=== PATIENT | male | born 1975 | race Hispanic/Latino ===

== ENCOUNTER 2017-08-22 00:56 | Emergency (ER) | payer OTHER ==
[2017-08-22 01:35] LABS: RAPID GROUP A STREP NEGATIVE (NEGATIVE)
[2017-08-22] MEDS ORDERED: OSELTAMIVIR PHOSPHATE 75 MG CAP ONE (01:56)
[2017-08-22] MEDS ORDERED: ONDANSETRON ODT 4 MG TAB ONE (01:59)
[2017-08-22] MEDS ORDERED: ACETAMINOPHEN 325 MG TAB ONE (01:59)
== END 2017-08-22 02:15 | disposition home or self-care (01) ==
LOC: EDH 00:56
DX: J09.X2 Influenza due to identified novel influenza A virus with other respiratory manifestations (principal); R50.81 Fever presenting with conditions classified elsewhere; Z88.1 Allergy status to other antibiotic agents; Z88.8 Allergy status to other drugs, medicaments and biological substances
CPT/HCPCS: 87804; 87880

== ENCOUNTER 2017-09-22 02:04 | Emergency (ER) | payer OTHER ==
[2017-09-22] MEDS ORDERED: LIDOCAINE HCL 2% VISCOUS 15 ML UDCUP ONE (02:36)
[2017-09-22] MEDS ORDERED: MAGNESIUM HYDROXIDE 30 ML/UDCUP ONE (02:36)
[2017-09-22 02:59] LABS: BASOPHILS % (AUTO) 0.9 % (0.0-5.0); EOSINOPHILS % (AUTO) 7.6 % (0.0-8.0); HEMATOCRIT 44.1 % (42-54); LYMPHOCYTES % (AUTO) 34.7 % (21.0-51.0); MEAN CORPUSCULAR HEMOGLOBIN 29.9 pg (27.0-33.0); MEAN CORPUSCULAR HGB CONC 34.7 g/dL (32.0-36.0); MONOCYTES % (AUTO) 6.3 % (3.0-13.0); NEUTROPHILS % (AUTO) 50.5 % (40.0-77.0); PLATELET COUNT (AUTO) 162 K/uL (130-400); RED BLOOD CELL COUNT(AUTO) 5.13 MIL/uL (4.50-6.20); RED CELL DISTRIBUTION WIDTH 13.3 % (11.0-15.5)
[2017-09-22 03:11] LABS: CREATININE 0.8 mg/dL (0.5-1.5); POTASSIUM 3.7 mmol/L (3.5-5.1)
[2017-09-22 03:13] LABS: ALBUMIN 3.6 g/dL (3.5-5.0); BILIRUBIN,TOTAL 0.4 mg/dL (0.2-1.0); TOTAL PROTEIN, SERUM 7.8 g/dL (6.0-8.3)
[2017-09-22 03:17] LABS: RAPID GROUP A STREP NEGATIVE (NEGATIVE)
[2017-09-22 04:01] LABS: AMPHET/METH SCREEN,URINE NEGATIVE (NEGATIVE); BARBITURATE SCREEN, URINE NEGATIVE (NEGATIVE); BENZODIAZEPINES SCREEN,URINE NEGATIVE (NEGATIVE); CANNABINOID SCREEN,URINE NEGATIVE (NEGATIVE); COCAINE SCREEN,URINE NEGATIVE (NEGATIVE); OPIATE SCREEN,URINE NEGATIVE (NEGATIVE); PHENCYCLIDINE SCREEN,URINE NEGATIVE (NEGATIVE)
== END 2017-09-22 05:02 | disposition home or self-care (01) ==
LOC: EDH 02:04
DX: K21.9 Gastro-esophageal reflux disease without esophagitis (principal); K29.70 Gastritis, unspecified, without bleeding; R07.89 Other chest pain; Z88.1 Allergy status to other antibiotic agents; Z88.8 Allergy status to other drugs, medicaments and biological substances
CPT/HCPCS: 36415; 70450; 71045; 80053; 80305; 83690; 84484; 85025; 87804; 87880; 93005

== ENCOUNTER 2017-11-15 07:43 | Emergency (ER) | payer OTHER ==
[2017-11-15] MEDS ORDERED: KETOROLAC TROMETHAMINE 60 MG/2 ML VIAL ONE (08:39)
== END 2017-11-15 09:20 | disposition home or self-care (01) ==
LOC: EDH 07:43
DX: M77.8 Other enthesopathies, not elsewhere classified (principal); Z72.0 Tobacco use; Z88.8 Allergy status to other drugs, medicaments and biological substances
CPT/HCPCS: 73080; 96372; 99284; J1885

== ENCOUNTER 2017-11-22 09:48 | Emergency (ER) | payer OTHER ==
[2017-11-22] MEDS ORDERED: ONDANSETRON HCL MDV 20ML 2 MG/ML VIAL ONE (10:30)
[2017-11-22] MEDS ORDERED: KETOROLAC TROMETHAMINE 30MG/ML ONE (10:32)
[2017-11-22 10:44] LABS: BASOPHILS % (AUTO) 0.4 % (0.0-5.0); EOSINOPHILS % (AUTO) 6.6 % (0.0-8.0); HEMATOCRIT 43.6 % (42-54); LYMPHOCYTES % (AUTO) 37.1 % (21.0-51.0); MEAN CORPUSCULAR HEMOGLOBIN 30.1 pg (27.0-33.0); MEAN CORPUSCULAR HGB CONC 34.7 g/dL (32.0-36.0); MEAN CORPUSCULAR VOLUME 86.7 fL (79-99); MONOCYTES % (AUTO) 6.8 % (3.0-13.0); NEUTROPHILS % (AUTO) 49.1 % (40.0-77.0); NUCLEATED RED BLOOD CELLS 0.1 % (0.0-0.19); PLATELET COUNT (AUTO) 155 K/uL (130-400); RED BLOOD CELL COUNT(AUTO) 5.03 MIL/uL (4.50-6.20); RED CELL DISTRIBUTION WIDTH 13.3 % (11.0-15.5); WHITE BLOOD COUNT (AUTO) 4.9 K/uL (4.8-10.8)
[2017-11-22 10:55] LABS: APPEARANCE,URINE Clear (CLEAR); BILIRUBIN,URINE Negative (NEGATIVE); COLOR,URINE Yellow (YELLOW); GLUCOSE, URINE (UA) >=1000 mg/dL (NEGATIVE); KETONES,URINE Negative (NEGATIVE); LEUKOCYTE ESTERASE ,URINE Negative (NEGATIVE); NITRATE,URINE Negative (NEGATIVE); OCCULT BLOOD,URINE Negative (NEGATIVE); PH,URINE 6.5 (5.0-8.0); PROTEIN,URINE Negative (NEGATIVE)
[2017-11-22 11:04] LABS: CREATININE 0.8 mg/dL (0.5-1.5); POTASSIUM 3.8 mmol/L (3.5-5.1)
[2017-11-22 11:05] LABS: ALBUMIN 3.5 g/dL (3.5-5.0); BILIRUBIN,TOTAL 0.4 mg/dL (0.2-1.0); TOTAL PROTEIN, SERUM 7.6 g/dL (6.0-8.3)
[2017-11-22 11:07] LABS: BACTERIA,URINE Rare /HPF (None Seen); RBC,URINE 0-1 /HPF (0-1); SQUAMOUS EPITHELIAL CELL,UR Rare /HPF (0-2); WBC,URINE 0-1 /HPF (0-1)
[2017-11-22] MEDS ORDERED: IOPAMIDOL-370 100 ML VIAL IV ONE (11:20)
== END 2017-11-22 12:31 | disposition home or self-care (01) ==
LOC: EDH 09:48
DX: R10.31 Right lower quadrant pain (principal); Z72.0 Tobacco use; Z88.1 Allergy status to other antibiotic agents; Z88.8 Allergy status to other drugs, medicaments and biological substances
CPT/HCPCS: 36415; 74177; 80053; 81001; 83690; 85025; 93005; 96374; 96375; 99285; J1885; Q9967

== ENCOUNTER 2018-01-02 17:27 | Emergency (ER) | payer OTHER ==
[2018-01-02] MEDS ORDERED: KETOROLAC TROMETHAMINE 60 MG/2 ML VIAL ONE (17:58)
[2018-01-02] MEDS ORDERED: DEXAMETHASONE SOD PHOSPHATE 10MG/ML 1ML VIAL ONE (17:58)
[2018-01-02 18:55] LABS: RAPID GROUP A STREP NEGATIVE (NEGATIVE)
== END 2018-01-02 19:33 | disposition home or self-care (01) ==
LOC: EDH 17:27
DX: J01.00 Acute maxillary sinusitis, unspecified (principal); Z87.891 Personal history of nicotine dependence; Z88.1 Allergy status to other antibiotic agents; Z88.8 Allergy status to other drugs, medicaments and biological substances
CPT/HCPCS: 87804 ×2; 87880; 96372 ×2; 99284; J1100; J1885

== ENCOUNTER 2018-06-10 07:13 | Emergency (ER) | payer MEDICAID ==
[2018-06-10] MEDS ORDERED: NAPROXEN 500 MG TABLET ONE (08:27)
== END 2018-06-10 08:47 | disposition home or self-care (01) ==
LOC: EDH 07:13
DX: M54.6 Pain in thoracic spine (principal); M54.5 Low back pain; R10.13 Epigastric pain; R06.02 Shortness of breath; R20.2 Paresthesia of skin
CPT/HCPCS: 71045; 72070

== ENCOUNTER 2018-06-22 23:08 | Emergency (ER) | payer MEDICAID ==
[2018-06-22] MEDS ORDERED: HYDROXYZINE HCL 25 MG TABLET ONE (23:59)
== END 2018-06-23 00:17 | disposition home or self-care (01) ==
LOC: EDH 23:08
DX: F41.1 Generalized anxiety disorder (principal); E11.9 Type 2 diabetes mellitus without complications; E78.5 Hyperlipidemia, unspecified; Z88.1 Allergy status to other antibiotic agents; Z88.8 Allergy status to other drugs, medicaments and biological substances; Z98.890 Other specified postprocedural states

== ENCOUNTER 2018-09-12 15:33 | Emergency (ER) | payer MEDICAID ==
[2018-09-12] MEDS ORDERED: ONDANSETRON HCL 4 MG/2 ML VIAL ONE (16:02)
[2018-09-12] MEDS ORDERED: ASPIRIN 325 MG TABLET ONE (16:03)
[2018-09-12] MEDS ORDERED: SODIUM CHLORIDE 0.9% 1000ML 1,000 ML IV ONE (16:03)
[2018-09-12 16:07] LABS: APPEARANCE,URINE Clear (CLEAR); BILIRUBIN,URINE Negative (NEGATIVE); COLOR,URINE Yellow (YELLOW); GLUCOSE, URINE (UA) Negative (NEGATIVE); KETONES,URINE Negative (NEGATIVE); LEUKOCYTE ESTERASE ,URINE Negative (NEGATIVE); NITRATE,URINE Negative (NEGATIVE); OCCULT BLOOD,URINE Negative (NEGATIVE); PH,URINE 5.5 (5.0-8.0); PROTEIN,URINE Negative (NEGATIVE)
[2018-09-12 16:12] LABS: EOSINOPHILS % (AUTO) 2.4 % (0.0-8.0); HEMATOCRIT 45.2 % (42-54); LYMPHOCYTES % (AUTO) 21.9 % (21.0-51.0); MEAN CORPUSCULAR HEMOGLOBIN 30.3 pg (27.0-33.0); MEAN CORPUSCULAR HGB CONC 34.7 g/dL (32.0-36.0); MEAN CORPUSCULAR VOLUME 87.4 fL (79-99); MONOCYTES % (AUTO) 6.3 % (3.0-13.0); NEUTROPHILS % (AUTO) 68.4 % (40.0-77.0); NUCLEATED RED BLOOD CELLS 0.1 % (0.0-0.19); PLATELET COUNT (AUTO) 178 K/uL (130-400); RED BLOOD CELL COUNT(AUTO) 5.17 MIL/uL (4.50-6.20); RED CELL DISTRIBUTION WIDTH 13.5 % (11.0-15.5); WHITE BLOOD COUNT (AUTO) 8.9 K/uL (4.8-10.8)
[2018-09-12 16:18] LABS: INR 0.95 (0.85-1.15); PARTIAL THROMBOPLASTIN TIME 26.8 SEC (26.3-35.5)
[2018-09-12 17:43] LABS: CREATININE 0.8 mg/dL (0.5-1.5); POTASSIUM 3.8 mmol/L (3.5-5.1)
[2018-09-12] MEDS ORDERED: GUAIFENESIN-DM 200/20 MG 10 ML ONE (17:45)
[2018-09-12 17:58] LABS: ALBUMIN 4.1 g/dL (3.5-5.0); BILIRUBIN,TOTAL 0.5 mg/dL (0.2-1.0); TOTAL PROTEIN, SERUM 8.5 g/dL (6.0-8.3)
== END 2018-09-12 19:04 | disposition home or self-care (01) ==
LOC: EDH 15:33
DX: J20.9 Acute bronchitis, unspecified (principal); J06.9 Acute upper respiratory infection, unspecified; E11.9 Type 2 diabetes mellitus without complications; E78.5 Hyperlipidemia, unspecified; Z88.1 Allergy status to other antibiotic agents; Z88.8 Allergy status to other drugs, medicaments and biological substances; Z72.0 Tobacco use; Z98.890 Other specified postprocedural states
CPT/HCPCS: 36415; 71045; 80053; 81003; 82550; 84484 ×2; 85025; 85610; 85730; 87804 ×2; 93005 ×2; 96374; 99284; J2405; J7030

== ENCOUNTER 2018-10-08 11:54 | Emergency (ER) | payer MEDICAID ==
[2018-10-08 12:42] LABS: BASOPHILS % (AUTO) 0.5 % (0.0-5.0); EOSINOPHILS % (AUTO) 0.6 % (0.0-8.0); HEMATOCRIT 45.9 % (42-54); LYMPHOCYTES % (AUTO) 15.9 % (21.0-51.0); MEAN CORPUSCULAR HEMOGLOBIN 29.8 pg (27.0-33.0); MEAN CORPUSCULAR VOLUME 87.8 fL (79-99); MONOCYTES % (AUTO) 6.6 % (3.0-13.0); NEUTROPHILS % (AUTO) 76.4 % (40.0-77.0); PLATELET COUNT (AUTO) 177 K/uL (130-400); RED BLOOD CELL COUNT(AUTO) 5.22 MIL/uL (4.50-6.20); RED CELL DISTRIBUTION WIDTH 13.6 % (11.0-15.5); WHITE BLOOD COUNT (AUTO) 8.4 K/uL (4.8-10.8)
[2018-10-08] MEDS ORDERED: SODIUM CHLORIDE 0.9% 1000ML 1,000 ML IV ONE (12:46)
[2018-10-08] MEDS ORDERED: ONDANSETRON HCL 4 MG/2 ML VIAL ONE (12:46)
[2018-10-08 13:13] LABS: CARBON DIOXIDE 29 mmol/L (21-32); CHLORIDE 103 mmol/L (101-111); CREATININE 0.7 mg/dL (0.5-1.5); GLOMERULAR FILTR. RATE CALC 132 mL/min (>60); GLUCOSE,RANDOM 170 mg/dL (70-105); POTASSIUM 4.6 mmol/L (3.5-5.1); SODIUM SERUM 142 mmol/L (136-145); UREA NITROGEN, BLOOD 11 mg/dL (7-18)
[2018-10-08 13:17] LABS: BILIRUBIN,URINE Negative (NEGATIVE); COLOR,URINE Yellow (YELLOW); GLUCOSE, URINE (UA) Negative (NEGATIVE); KETONES,URINE 15 mg/dL (NEGATIVE); LEUKOCYTE ESTERASE ,URINE Negative (NEGATIVE); NITRATE,URINE Negative (NEGATIVE); OCCULT BLOOD,URINE Negative (NEGATIVE); PROTEIN,URINE POS 1+ (NEGATIVE)
[2018-10-08 13:17] LABS: ALANINE AMINOTRANSFERASE 37 U/L (12-78); ALBUMIN 4.1 g/dL (3.5-5.0); ASPARTATE AMINOTRANSFERASE 34 U/L (10-37); BILIRUBIN,DIRECT < 0.1 mg/dL (0.0-0.3); BILIRUBIN,TOTAL 0.5 mg/dL (0.2-1.0); LIPASE 84 U/L (114-286); TOTAL PROTEIN, SERUM 8.4 g/dL (6.0-8.3)
[2018-10-08 13:24] LABS: APPEARANCE,URINE CLEAR (CLEAR)
[2018-10-08 13:25] LABS: AMPHET/METH SCREEN,URINE NEGATIVE (NEGATIVE); BARBITURATE SCREEN, URINE NEGATIVE (NEGATIVE); BENZODIAZEPINES SCREEN,URINE NEGATIVE (NEGATIVE); CANNABINOID SCREEN,URINE NEGATIVE (NEGATIVE); COCAINE SCREEN,URINE NEGATIVE (NEGATIVE); OPIATE SCREEN,URINE NEGATIVE (NEGATIVE); PHENCYCLIDINE SCREEN,URINE NEGATIVE (NEGATIVE)
[2018-10-08 13:45] LABS: BACTERIA,URINE Rare /HPF (None Seen); MUCUS,URINE Moderate LPF (None Seen); RBC,URINE None Seen /HPF (0-1); SQUAMOUS EPITHELIAL CELL,UR Rare /HPF (0-2); WBC,URINE None Seen /HPF (0-1)
== END 2018-10-08 15:19 | disposition home or self-care (01) ==
LOC: EDH 11:54
DX: K29.20 Alcoholic gastritis without bleeding (principal); E86.0 Dehydration; R51 Headache; E11.9 Type 2 diabetes mellitus without complications; E78.5 Hyperlipidemia, unspecified; Z88.1 Allergy status to other antibiotic agents; Z88.8 Allergy status to other drugs, medicaments and biological substances
CPT/HCPCS: 36415; 80048; 80076; 80305; 81001; 83690; 84484; 85025; 93005; 96361; 96374; 99284; J2405; J7030

== ENCOUNTER 2018-10-14 04:33 | Emergency (ER) | payer MEDICAID ==
[2018-10-14 05:19] LABS: APPEARANCE,URINE Clear (CLEAR); BILIRUBIN,URINE Negative (NEGATIVE); COLOR,URINE Yellow (YELLOW); GLUCOSE, URINE (UA) TRACE mg/dL (NEGATIVE); KETONES,URINE Negative (NEGATIVE); LEUKOCYTE ESTERASE ,URINE Negative (NEGATIVE); NITRATE,URINE Negative (NEGATIVE); OCCULT BLOOD,URINE Negative (NEGATIVE); PROTEIN,URINE Negative (NEGATIVE)
[2018-10-14 05:28] LABS: AMPHET/METH SCREEN,URINE NEGATIVE (NEGATIVE); BARBITURATE SCREEN, URINE NEGATIVE (NEGATIVE); BENZODIAZEPINES SCREEN,URINE NEGATIVE (NEGATIVE); CANNABINOID SCREEN,URINE NEGATIVE (NEGATIVE); COCAINE SCREEN,URINE NEGATIVE (NEGATIVE); OPIATE SCREEN,URINE NEGATIVE (NEGATIVE); PHENCYCLIDINE SCREEN,URINE NEGATIVE (NEGATIVE)
[2018-10-14 05:29] LABS: BASOPHILS % (AUTO) 0.6 % (0.0-5.0); EOSINOPHILS % (AUTO) 2.7 % (0.0-8.0); HEMATOCRIT 44.6 % (42-54); LYMPHOCYTES % (AUTO) 28.3 % (21.0-51.0); MEAN CORPUSCULAR VOLUME 88.3 fL (79-99); MONOCYTES % (AUTO) 6.7 % (3.0-13.0); NEUTROPHILS % (AUTO) 61.7 % (40.0-77.0); PLATELET COUNT (AUTO) 167 K/uL (130-400); RED BLOOD CELL COUNT(AUTO) 5.06 MIL/uL (4.50-6.20); RED CELL DISTRIBUTION WIDTH 13.7 % (11.0-15.5); WHITE BLOOD COUNT (AUTO) 7.9 K/uL (4.8-10.8)
[2018-10-14 05:36] LABS: CREATININE 0.8 mg/dL (0.5-1.5); POTASSIUM 3.8 mmol/L (3.5-5.1)
[2018-10-14 05:41] LABS: ALBUMIN 3.7 g/dL (3.5-5.0); BILIRUBIN,TOTAL 0.4 mg/dL (0.2-1.0); TOTAL PROTEIN, SERUM 7.8 g/dL (6.0-8.3)
[2018-10-14 05:48] LABS: B-TYPE NATRIURETIC PEPTIDE 6 pg/mL (0-100)
[2018-10-14] MEDS ORDERED: METOPROLOL TARTRATE 25 MG TAB ONE (07:10)
== END 2018-10-14 09:21 | disposition home or self-care (01) ==
LOC: EDH 04:33
DX: R00.2 Palpitations (principal); R03.0 Elevated blood-pressure reading, without diagnosis of hypertension; E78.5 Hyperlipidemia, unspecified; E11.9 Type 2 diabetes mellitus without complications; Z98.890 Other specified postprocedural states; Z88.1 Allergy status to other antibiotic agents; Z88.8 Allergy status to other drugs, medicaments and biological substances; Z72.0 Tobacco use
CPT/HCPCS: 36415; 71046; 80053; 80305; 81003; 82550; 83880; 84484; 85025; 85378; 93005

== ENCOUNTER → 2018-11-28 | Outpatient (CLI) | payer OTHER | END | disposition home or self-care (01) | LOC: OIH 13:19 | PROVIDERS: ATTEND Internal Medicine Cardiovascular Disease | DX: Z13.6 Encounter for screening for cardiovascular disorders (principal) | CPT/HCPCS: 75571 ==

== ENCOUNTER → 2018-11-28 | Outpatient (CLI) | payer MEDICAID | END | disposition home or self-care (01) | LOC: RAH 13:18 | PROVIDERS: ATTEND Internal Medicine Cardiovascular Disease | DX: R00.2 Palpitations (principal) | CPT/HCPCS: 93306 ==

== ENCOUNTER 2019-01-16 20:46 | Emergency (ER) | payer MEDICAID, OTHER ==
[2019-01-16] MEDS ORDERED: SODIUM CHLORIDE 0.9% 1000ML 1,000 ML IV ONE ×2 (21:14→22:01)
[2019-01-16] MEDS ORDERED: ONDANSETRON HCL 4 MG/2 ML VIAL ONE (21:17)
[2019-01-16 21:42] LABS: BASOPHILS % (AUTO) 0.5 % (0.0-5.0); HEMATOCRIT 42.5 % (42-54); LYMPHOCYTES % (AUTO) 27.5 % (21.0-51.0); MEAN CORPUSCULAR HEMOGLOBIN 31.6 pg (27.0-33.0); MEAN CORPUSCULAR HGB CONC 35.4 g/dL (32.0-36.0); MEAN CORPUSCULAR VOLUME 89.2 fL (79-99); MONOCYTES % (AUTO) 6.1 % (3.0-13.0); NEUTROPHILS % (AUTO) 63.9 % (40.0-77.0); NUCLEATED RED BLOOD CELLS 0.1 % (0.0-0.19); PLATELET COUNT (AUTO) 172 K/uL (130-400); RED BLOOD CELL COUNT(AUTO) 4.76 MIL/uL (4.50-6.20); RED CELL DISTRIBUTION WIDTH 12.9 % (11.0-15.5); WHITE BLOOD COUNT (AUTO) 8.1 K/uL (4.8-10.8)
[2019-01-16 21:47] LABS: INR 0.94 (0.85-1.15); PARTIAL THROMBOPLASTIN TIME 27.5 SEC (26.3-35.5); PROTHROMBIN TIME 9.9 SEC (9.6-11.6)
[2019-01-16 21:48] LABS: CREATININE 0.9 mg/dL (0.5-1.5); POTASSIUM 4.2 mmol/L (3.5-5.1)
[2019-01-16 21:53] LABS: ALBUMIN 3.9 g/dL (3.5-5.0); BILIRUBIN,TOTAL 0.4 mg/dL (0.2-1.0)
[2019-01-16 22:06] LABS: APPEARANCE,URINE Clear (CLEAR); BILIRUBIN,URINE Negative (NEGATIVE); COLOR,URINE Yellow (YELLOW); GLUCOSE, URINE (UA) Negative (NEGATIVE); KETONES,URINE Negative (NEGATIVE); LEUKOCYTE ESTERASE ,URINE Negative (NEGATIVE); NITRATE,URINE Negative (NEGATIVE); OCCULT BLOOD,URINE Negative (NEGATIVE); PROTEIN,URINE Negative (NEGATIVE)
== END 2019-01-17 00:29 | disposition home or self-care (01) ==
LOC: EDH 20:46
DX: K52.9 Noninfective gastroenteritis and colitis, unspecified (principal); E86.0 Dehydration; E11.9 Type 2 diabetes mellitus without complications; E78.5 Hyperlipidemia, unspecified; Z98.890 Other specified postprocedural states; Z88.1 Allergy status to other antibiotic agents; Z88.8 Allergy status to other drugs, medicaments and biological substances
CPT/HCPCS: 36415; 74176; 80053; 81003; 82150; 82550; 83690; 84484; 85025; 85610; 85730; 93005; 96361; 96374; 99285; J2405; J7030 ×2

== ENCOUNTER 2019-02-25 12:59 | Emergency (ER) | payer OTHER, MEDICAID ==
[2019-02-25 13:20] LABS: BASOPHILS % (AUTO) 2.6 % (0.0-5.0); EOSINOPHILS % (AUTO) 2.3 % (0.0-8.0); HEMATOCRIT 41.5 % (42-54); LYMPHOCYTES % (AUTO) 30.8 % (21.0-51.0); MEAN CORPUSCULAR HEMOGLOBIN 31.5 pg (27.0-33.0); MEAN CORPUSCULAR HGB CONC 35.6 g/dL (32.0-36.0); MEAN CORPUSCULAR VOLUME 88.5 fL (79-99); MONOCYTES % (AUTO) 6.7 % (3.0-13.0); NEUTROPHILS % (AUTO) 57.6 % (40.0-77.0); PLATELET COUNT (AUTO) 155 K/uL (130-400); RED BLOOD CELL COUNT(AUTO) 4.69 MIL/uL (4.50-6.20); RED CELL DISTRIBUTION WIDTH 13.1 % (11.0-15.5); WHITE BLOOD COUNT (AUTO) 6.4 K/uL (4.8-10.8)
[2019-02-25] MEDS ORDERED: ASPIRIN 325 MG TABLET ONE (13:29)
[2019-02-25] MEDS ORDERED: NITROGLYCERIN 0.4 MG SL TAB SL ONE (13:29)
[2019-02-25 13:45] LABS: CREATININE 0.8 mg/dL (0.5-1.5); POTASSIUM 3.8 mmol/L (3.5-5.1)
[2019-02-25 13:47] LABS: INR 0.99 (0.85-1.15); PARTIAL THROMBOPLASTIN TIME 30.3 SEC (26.3-35.5); PROTHROMBIN TIME 10.4 SEC (9.6-11.6)
[2019-02-25 13:49] LABS: ALBUMIN 3.8 g/dL (3.5-5.0); BILIRUBIN,TOTAL 0.4 mg/dL (0.2-1.0); TOTAL PROTEIN, SERUM 7.6 g/dL (6.0-8.3)
[2019-02-25 14:37] LABS: APPEARANCE,URINE Clear (CLEAR); BILIRUBIN,URINE Negative (NEGATIVE); COLOR,URINE Yellow (YELLOW); GLUCOSE, URINE (UA) Negative (NEGATIVE); KETONES,URINE Negative (NEGATIVE); LEUKOCYTE ESTERASE ,URINE Negative (NEGATIVE); NITRATE,URINE Negative (NEGATIVE); OCCULT BLOOD,URINE Negative (NEGATIVE); PROTEIN,URINE Negative (NEGATIVE)
== END 2019-02-25 18:10 | disposition home or self-care (01) ==
LOC: EDH 12:59
DX: R07.89 Other chest pain (principal); E11.9 Type 2 diabetes mellitus without complications; E78.5 Hyperlipidemia, unspecified; Z88.1 Allergy status to other antibiotic agents; Z88.8 Allergy status to other drugs, medicaments and biological substances; Z87.891 Personal history of nicotine dependence; Z98.890 Other specified postprocedural states
CPT/HCPCS: 36415; 71045; 80053; 81003; 83880; 84484; 85025; 85610; 85730; 93005

== ENCOUNTER 2019-05-01 18:49 | Emergency (ER) | payer OTHER, MEDICAID ==
[2019-05-01 19:10] LABS: BASOPHILS % (AUTO) 0.4 % (0.0-5.0); EOSINOPHILS % (AUTO) 2.5 % (0.0-8.0); HEMATOCRIT 41.7 % (42-54); LYMPHOCYTES % (AUTO) 30.8 % (21.0-51.0); MEAN CORPUSCULAR HGB CONC 36.1 g/dL (32.0-36.0); MEAN CORPUSCULAR VOLUME 88.7 fL (79-99); NEUTROPHILS % (AUTO) 59.3 % (40.0-77.0); NUCLEATED RED BLOOD CELLS 0.1 % (0.0-0.19); PLATELET COUNT (AUTO) 162 K/uL (130-400); RED CELL DISTRIBUTION WIDTH 13.2 % (11.0-15.5); WHITE BLOOD COUNT (AUTO) 7.6 K/uL (4.8-10.8)
[2019-05-01 19:20] LABS: CREATININE 0.9 mg/dL (0.5-1.5); POTASSIUM 3.9 mmol/L (3.5-5.1)
[2019-05-01 19:27] LABS: INR 0.94 (0.85-1.15); PARTIAL THROMBOPLASTIN TIME 26.6 SEC (26.3-35.5); PROTHROMBIN TIME 9.9 SEC (9.6-11.6)
[2019-05-01 19:30] LABS: ALBUMIN 3.7 g/dL (3.5-5.0); BILIRUBIN,TOTAL 0.5 mg/dL (0.2-1.0); TOTAL PROTEIN, SERUM 7.5 g/dL (6.0-8.3)
[2019-05-01] MEDS ORDERED: ASPIRIN 325 MG TABLET ONE (19:40)
[2019-05-01 20:31] LABS: AMPHET/METH SCREEN,URINE NEGATIVE (NEGATIVE); BARBITURATE SCREEN, URINE NEGATIVE (NEGATIVE); BENZODIAZEPINES SCREEN,URINE NEGATIVE (NEGATIVE); CANNABINOID SCREEN,URINE NEGATIVE (NEGATIVE); COCAINE SCREEN,URINE NEGATIVE (NEGATIVE); OPIATE SCREEN,URINE NEGATIVE (NEGATIVE); PHENCYCLIDINE SCREEN,URINE NEGATIVE (NEGATIVE)
== END 2019-05-01 22:07 | disposition home or self-care (01) ==
LOC: EDH 18:49
DX: R07.89 Other chest pain (principal); R20.2 Paresthesia of skin; E11.9 Type 2 diabetes mellitus without complications; E78.5 Hyperlipidemia, unspecified; Z87.891 Personal history of nicotine dependence; Z88.8 Allergy status to other drugs, medicaments and biological substances; Z88.1 Allergy status to other antibiotic agents
CPT/HCPCS: 36415; 70450; 71045; 80053; 80305; 82550; 82948; 83874; 84484; 85025; 85378; 85610; 85730; 93005

== ENCOUNTER 2021-02-04 03:34 | Observation (INO) | payer BC, MEDICAID, OTHER ==
[~2021-02-04] VITALS: Ht 175.3 cm; Wt 107.4 kg
[2021-02-04] VITALS (9 sets, daily range): BP systolic 112–131; BP diastolic 68–90
[2021-02-04 04:19] LABS: BASOPHILS % (AUTO) 0.5 % (0.0-5.0); EOSINOPHILS % (AUTO) 4.2 % (0.0-8.0); HEMATOCRIT 43.4 % (42-54); LYMPHOCYTES % (AUTO) 25.7 % (21.0-51.0); MEAN CORPUSCULAR HEMOGLOBIN 31.1 pg (27.0-33.0); MEAN CORPUSCULAR HGB CONC 36.4 g/dL (32.0-36.0); MEAN CORPUSCULAR VOLUME 85.4 fL (79-99); MONOCYTES % (AUTO) 6.9 % (3.0-13.0); NEUTROPHILS % (AUTO) 62.2 % (40.0-77.0); NUCLEATED RED BLOOD CELLS 0.2 % (0.0-0.19); PLATELET COUNT (AUTO) 205 K/uL (130-400); RED BLOOD CELL COUNT(AUTO) 5.08 MIL/uL (4.50-6.20); RED CELL DISTRIBUTION WIDTH 12.4 % (11.0-15.5); WHITE BLOOD COUNT (AUTO) 8.4 K/uL (4.8-10.8)
[2021-02-04 04:21] LABS: APPEARANCE,URINE Clear (CLEAR); BILIRUBIN,URINE Negative (NEGATIVE); COLOR,URINE Yellow (YELLOW); GLUCOSE, URINE (UA) >=1000 mg/dL (NEGATIVE); KETONES,URINE 15 mg/dL (NEGATIVE); LEUKOCYTE ESTERASE ,URINE Negative (NEGATIVE); NITRATE,URINE Negative (NEGATIVE); OCCULT BLOOD,URINE Negative (NEGATIVE); PROTEIN,URINE Negative (NEGATIVE)
[2021-02-04 04:29] LABS: CREATININE 0.6 mg/dL (0.5-1.5); POTASSIUM 4.4 mmol/L (3.5-5.1)
[2021-02-04] MEDS ORDERED: ONDANSETRON 4MG INJ IVP ONE (04:30)
[2021-02-04] MEDS ORDERED: HYDROMORPHONE 1 MG INJ IVP ONE (04:30)
[2021-02-04 04:34] LABS: ALBUMIN 3.5 g/dL (3.5-5.0); BILIRUBIN,TOTAL 0.8 mg/dL (0.2-1.0)
[2021-02-04 04:58] LABS: BACTERIA,URINE Rare /HPF (None Seen); MUCUS,URINE Rare LPF (None Seen); RBC,URINE 0-1 /HPF (0-1); SQUAMOUS EPITHELIAL CELL,UR 0-2 /HPF (0-2); WBC,URINE 0-1 /HPF (0-1)
[2021-02-04 05:03] LABS: TOTAL PROTEIN, SERUM 7.6 g/dL (6.0-8.3)
[2021-02-04] MEDS ORDERED: HYDROMORPHONE 0.5 MG SYG (0.5MG/0.5ML) IVP ONE (06:45)
[2021-02-04] MEDS ORDERED: GUAIFENESIN-DM 200/20 MG 10 ML PO PRN (07:00)
[2021-02-04] MEDS ORDERED: MAG/ALUM/SIMETH 30 ML UDCUP PO PRN (07:00)
[2021-02-04] MEDS ORDERED: ACETAMINOPHEN 325 MG TAB PO PRN ×2 (07:00)
[2021-02-04] MEDS ORDERED: HYDROMORPHONE 1 MG INJ IV PRN (07:00)
[2021-02-04] MEDS ORDERED: ONDANSETRON 4MG INJ IV PRN (07:00)
[2021-02-04] MEDS ORDERED: NITROGLYCERIN 0.4 MG SL TAB SL PRN (07:00)
[2021-02-04] MEDS ORDERED: LACTULOSE 20 GM/30 ML UDCUP PO PRN (07:00)
[2021-02-04] MEDS ORDERED: ZOLPIDEM TARTRATE 5 MG TAB PO PRN (07:00)
[2021-02-04] MEDS ORDERED: POTASSIUM CHLORIDE 20MEQ/100ML 100 ML IV PRN (07:30)
[2021-02-04] MEDS ORDERED: GLUCAGON 1MG KIT 1 MG ML IM PRN (07:30)
[2021-02-04] MEDS ORDERED: LABETALOL 20MG SYG IV PRN (07:30)
[2021-02-04] MEDS ORDERED: DEXTROSE 50%-WATER 50 ML DISP.SYRIN IV PRN (07:30)
[2021-02-04] MEDS ORDERED: POTASSIUM CHLORIDE 10% ELIXIR 20 MEQ/15 ML UDCUP PO PRN (07:30)
[2021-02-04 07:38] LABS: CHOLESTEROL 259 mg/dL (<200); HDL CHOLESTEROL 25 mg/dL (29-71); LDL DIRECT 58 mg/dL (0-99); TRIGLYCERIDES 1528 mg/dL (30-200)
[2021-02-04] MEDS: 0.9%NACL 1000ML 1,000 ML IV SCH ×5 (08:01→22:45)
[2021-02-04] MEDS: INSULIN HUMULIN R 100 UNIT/ML 3ML SQ SCH ×4 (08:32→20:33)
[2021-02-04] MEDS ORDERED: PARO-37 PO (08:44)
[2021-02-04] MEDS ORDERED: ATOR10 PO (08:44)
[2021-02-04] MEDS ORDERED: AEC81 PO (08:44)
[2021-02-04] MEDS ORDERED: METF500T PO (08:44)
[2021-02-04] MEDS ORDERED: LISI20TA24 PO (08:44)
[2021-02-04] MEDS: PANTOPRAZOLE 40 MG/VIAL IVP SCH ×2 (10:08→20:26)
[2021-02-04] MEDS: ENOXAPARIN SODIUM 40 MG/0.4 ML SYRINGE SQ SCH (10:08)
[2021-02-04] MEDS: METOPROLOL TARTRATE 25 MG TAB PO SCH ×2 (10:08→20:26)
[2021-02-04] MEDS: GEMFIBROZIL 600 MG TABLET PO SCH (18:55)
[2021-02-04] MEDS: INSULIN GLARGINE 100 UNITS/ML 10 ML VIAL SQ SCH (20:29)
[2021-02-05] VITALS (7 sets, daily range): BP systolic 108–154; BP diastolic 44–85
[2021-02-05] MEDS: 0.9%NACL 1000ML 1,000 ML IV SCH ×4 (05:30→23:00)
[2021-02-05 05:50] LABS: HEMATOCRIT 39.2 % (42-54); MEAN CORPUSCULAR HEMOGLOBIN 29.4 pg (27.0-33.0); MEAN CORPUSCULAR HGB CONC 33.9 g/dL (32.0-36.0); MEAN CORPUSCULAR VOLUME 86.7 fL (79-99); RED BLOOD CELL COUNT(AUTO) 4.52 MIL/uL (4.50-6.20); RED CELL DISTRIBUTION WIDTH 12.9 % (11.0-15.5); WHITE BLOOD COUNT (AUTO) 6.6 K/uL (4.8-10.8)
[2021-02-05 06:03] LABS: HEMOGLOBIN A1C 10.5 % (4.0-6.0)
[2021-02-05 06:22] LABS: ALBUMIN 3.1 g/dL (3.5-5.0); BILIRUBIN,TOTAL 0.3 mg/dL (0.2-1.0); CREATININE 0.7 mg/dL (0.5-1.5); MAGNESIUM 1.9 mg/dL (1.80-2.40); POTASSIUM 3.6 mmol/L (3.5-5.1); TOTAL PROTEIN, SERUM 6.9 g/dL (6.0-8.3)
[2021-02-05] MEDS: GEMFIBROZIL 600 MG TABLET PO SCH ×2 (07:30→16:58)
[2021-02-05] MEDS: INSULIN HUMULIN R 100 UNIT/ML 3ML SQ SCH ×4 (07:30→22:59)
[2021-02-05 07:40] LABS: AMYLASE 70 U/L (25-115); LIPASE 250 U/L (114-286)
[2021-02-05] MEDS: PANTOPRAZOLE 40 MG/VIAL IVP SCH ×2 (08:22→20:07)
[2021-02-05] MEDS: METOPROLOL TARTRATE 25 MG TAB PO SCH ×2 (08:24→20:07)
[2021-02-05] MEDS: ENOXAPARIN SODIUM 40 MG/0.4 ML SYRINGE SQ SCH (09:00)
[2021-02-05] MEDS: KCL 20 MEQ ERTAB PO PRN ×2 (15:30→18:05)
[2021-02-05] MEDS: METFORMIN HCL 500 MG TABLET PO SCH (20:06)
[2021-02-05] MEDS: PAROXETINE HCL 20 MG TABLET PO SCH (20:07)
[2021-02-05] MEDS: LISINOPRIL 20 MG TABLET PO SCH (20:07)
[2021-02-05] MEDS ORDERED: ATORVASTATIN 20 MG TABLET PO SCH (21:00)
[2021-02-05] MEDS: INSULIN GLARGINE 100 UNITS/ML 10 ML VIAL SQ SCH (23:00)
[2021-02-06 03:21] VITALS: BP 104/67
[2021-02-06] MEDS: INSULIN HUMULIN R 100 UNIT/ML 3ML SQ SCH ×2 (05:25→11:48)
[2021-02-06 06:13] LABS: CREATININE 0.7 mg/dL (0.5-1.5); POTASSIUM 3.7 mmol/L (3.5-5.1)
[2021-02-06] MEDS: GEMFIBROZIL 600 MG TABLET PO SCH (06:24)
[2021-02-06 08:00] VITALS: BP 117/81
[2021-02-06] MEDS: ENOXAPARIN SODIUM 40 MG/0.4 ML SYRINGE SQ SCH (09:00)
[2021-02-06] MEDS ORDERED: ASPIRIN 81 MG EC TAB PO SCH (09:00)
[2021-02-06] MEDS: PANTOPRAZOLE 40 MG/VIAL IVP SCH (09:43)
[2021-02-06] MEDS: PAROXETINE HCL 20 MG TABLET PO SCH (09:43)
[2021-02-06] MEDS: METOPROLOL TARTRATE 25 MG TAB PO SCH (09:43)
[2021-02-06] MEDS: METFORMIN HCL 500 MG TABLET PO SCH (09:44)
[2021-02-06] MEDS: LISINOPRIL 20 MG TABLET PO SCH (09:45)
[2021-02-06 12:00] VITALS: BP 113/71
== END 2021-02-06 15:05 | disposition home or self-care (01) ==
LOC: EDH 03:34 → EDHIP 06:49 → 3AH 02-05 00:13
PROVIDERS: ADMIT Internal Medicine; ATTEND Internal Medicine
DX: K85.90 Acute pancreatitis without necrosis or infection, unspecified (principal); E11.65 Type 2 diabetes mellitus with hyperglycemia; E66.9 Obesity, unspecified; E78.00 Pure hypercholesterolemia, unspecified; E78.1 Pure hyperglyceridemia; R16.0 Hepatomegaly, not elsewhere classified; F19.90 Other psychoactive substance use, unspecified, uncomplicated; R11.0 Nausea; I10 Essential (primary) hypertension; R63.0 Anorexia; K76.0 Fatty (change of) liver, not elsewhere classified; Z68.34 Body mass index [BMI] 34.0-34.9, adult; Z79.4 Long term (current) use of insulin; Z79.82 Long term (current) use of aspirin; Z79.899 Other long term (current) drug therapy; Z98.890 Other specified postprocedural states
CPT/HCPCS: 36415 ×3; 74176; 76705; 80048; 80053 ×2; 80061; 81001; 82150 ×3; 82948 ×10; 83036; 83690 ×3; 83735; 84484; 85025; 85027; 93005; 96361 ×2; 96372 ×3; 96374; 96375; 96376 ×3; 99285; C9113 ×5; G0378 ×56; J1170 ×3; J1650; J1815 ×7; J2405 ×2; J7030 ×2

== ENCOUNTER 2021-10-02 04:08 | Emergency (ER) | payer BC ==
[~2021-10-02] VITALS: Ht 175.3 cm; Wt 109.8 kg
[~2021-10-02 04:08] MED LIST: AEC81 PO; ATOR10 PO; LISI20TA24 PO; METF500T PO; PARO-37 PO
[2021-10-02] MEDS ORDERED: ONDANSETRON 4MG INJ IVP ONE (05:00)
[2021-10-02] MEDS ORDERED: MORPHINE 4 MG SYG IVP ONE (05:00)
[2021-10-02] MEDS ORDERED: 0.9%NACL 1000ML 1,000 ML IV ONE (05:00)
[2021-10-02 05:19] LABS: BASOPHILS % (AUTO) 0.4 % (0.0-5.0); EOSINOPHILS % (AUTO) 2.6 % (0.0-8.0); HEMATOCRIT 43.3 % (42-54); LYMPHOCYTES % (AUTO) 25.1 % (21.0-51.0); MEAN CORPUSCULAR HEMOGLOBIN 30.5 pg (27.0-33.0); MEAN CORPUSCULAR HGB CONC 34.4 g/dL (32.0-36.0); MEAN CORPUSCULAR VOLUME 88.7 fL (79-99); MONOCYTES % (AUTO) 8.5 % (3.0-13.0); PLATELET COUNT (AUTO) 157 K/uL (130-400); RED BLOOD CELL COUNT(AUTO) 4.88 MIL/uL (4.50-6.20); RED CELL DISTRIBUTION WIDTH 12.4 % (11.0-15.5); WHITE BLOOD COUNT (AUTO) 6.8 K/uL (4.8-10.8)
[2021-10-02 05:34] LABS: ALBUMIN 3.8 g/dL (3.5-5.0); BILIRUBIN,TOTAL 0.6 mg/dL (0.2-1.0); CREATININE 0.7 mg/dL (0.5-1.5); POTASSIUM 4.1 mmol/L (3.5-5.1); TOTAL PROTEIN, SERUM 7.8 g/dL (6.0-8.3)
[2021-10-02 06:37] LABS: APPEARANCE,URINE Clear (CLEAR); BILIRUBIN,URINE Negative (NEGATIVE); COLOR,URINE Yellow (YELLOW); GLUCOSE, URINE (UA) >=1000 mg/dL (NEGATIVE); KETONES,URINE Negative (NEGATIVE); LEUKOCYTE ESTERASE ,URINE Negative (NEGATIVE); NITRATE,URINE Negative (NEGATIVE); OCCULT BLOOD,URINE Negative (NEGATIVE); PROTEIN,URINE Negative (NEGATIVE)
[2021-10-02 06:45] VITALS: BP 122/83
[2021-10-02 07:24] LABS: BACTERIA,URINE Rare /HPF (None Seen); RBC,URINE 0-1 /HPF (0-1); SQUAMOUS EPITHELIAL CELL,UR Rare /HPF (0-2); WBC,URINE 0-1 /HPF (0-1)
[2021-10-02] MEDS ORDERED: FAMO20TA8 PO (07:28)
[2021-10-04] MEDS ORDERED: METO25TA6 PO (11:56)
[2021-10-05] MEDS ORDERED: OMEG-209 PO (13:52)
[2021-10-05] MEDS ORDERED: GLIP-162 PO (13:52)
== END 2021-10-02 07:36 | disposition home or self-care (01) ==
LOC: EDH 04:08
DX: R10.13 Epigastric pain (principal); E11.65 Type 2 diabetes mellitus with hyperglycemia; E78.00 Pure hypercholesterolemia, unspecified; I10 Essential (primary) hypertension; Z79.82 Long term (current) use of aspirin; Z79.84 Long term (current) use of oral hypoglycemic drugs; Z88.1 Allergy status to other antibiotic agents
CPT/HCPCS: 36415; 80053; 81001; 82550; 83690; 84484; 85025; 93005; 96361; 96374; 96375; 99284; J2270; J2405; J7030

== ENCOUNTER 2022-01-23 12:24 | Emergency (ER) | payer BC ==
[~2022-01-23] VITALS: Ht 175.3 cm; Wt 109.3 kg
[~2022-01-23 12:24] MED LIST changes: -ATOR10 PO; +GLIP-162 PO; -METF500T PO; +METO25TA6 PO; +OMEG-209 PO
[2022-01-23] MEDS ORDERED: KETOROLAC 30MG VIAL (30MG/ML) IV ONE (12:30)
[2022-01-23] MEDS ORDERED: ONDANSETRON 4MG INJ IVP ONE (12:30)
[2022-01-23] MEDS ORDERED: MORPHINE 4 MG SYG IVP ONE (12:30)
[2022-01-23 12:45] LABS: BASOPHILS % (AUTO) 0.6 % (0.0-5.0); EOSINOPHILS % (AUTO) 3.7 % (0.0-8.0); HEMATOCRIT 42.3 % (42-54); MEAN CORPUSCULAR HEMOGLOBIN 30.1 pg (27.0-33.0); MEAN CORPUSCULAR VOLUME 88.3 fL (79-99); MONOCYTES % (AUTO) 7.7 % (3.0-13.0); NEUTROPHILS % (AUTO) 58.6 % (40.0-77.0); PLATELET COUNT (AUTO) 207 K/uL (130-400); RED BLOOD CELL COUNT(AUTO) 4.79 MIL/uL (4.50-6.20); RED CELL DISTRIBUTION WIDTH 12.9 % (11.0-15.5); WHITE BLOOD COUNT (AUTO) 7.9 K/uL (4.8-10.8)
[2022-01-23 12:52] LABS: CREATININE 0.9 mg/dL (0.5-1.5); POTASSIUM 3.9 mmol/L (3.5-5.1)
[2022-01-23 13:00] LABS: ALBUMIN 4.2 g/dL (3.5-5.0); BILIRUBIN,TOTAL 0.3 mg/dL (0.2-1.0); TOTAL PROTEIN, SERUM 8.2 g/dL (6.0-8.3)
[2022-01-23] MEDS ORDERED: ONDANSETRON 4MG INJ ONE (13:34)
[2022-01-23] MEDS ORDERED: KETOROLAC 30MG VIAL (30MG/ML) ONE (13:34)
[2022-01-23] MEDS ORDERED: MORPHINE 4 MG SYG ONE (13:34)
[2022-01-23] MEDS ORDERED: IBUP-2070 PO (14:08)
[2022-01-23] MEDS ORDERED: ACET-2079 PO (14:08)
[2022-01-23 14:22] VITALS: BP 158/93
[2022-01-23] MEDS ORDERED: NEOMY SULF/BACITRA/POLYMYXIN B 1 EACH PACKET TP ONE ×2 (14:41→15:00)
== END 2022-01-23 14:56 | disposition home or self-care (01) ==
LOC: EDH 12:24
DX: S06.0X0A Concussion without loss of consciousness, initial encounter (principal); E11.9 Type 2 diabetes mellitus without complications; E78.00 Pure hypercholesterolemia, unspecified; I10 Essential (primary) hypertension; Z79.1 Long term (current) use of non-steroidal anti-inflammatories (NSAID); Z79.82 Long term (current) use of aspirin; Z88.1 Allergy status to other antibiotic agents; X58.XXXA Exposure to other specified factors, initial encounter; Y93.89 Activity, other specified; Y92.89 Other specified places as the place of occurrence of the external cause; Y99.8 Other external cause status
CPT/HCPCS: 36415; 70450; 80053; 85025; 96374; 96375; 99284; J1885; J2270; J2405

== ENCOUNTER 2023-06-21 21:45 | Emergency (ER) | payer BC ==
[~2023-06-21] VITALS: Ht 175.3 cm; Wt 110.7 kg
[~2023-06-21 21:45] MED LIST changes: +ACET-2079 PO; +IBUP-2070 PO
[2023-06-21 22:16] VITALS: BP_SYST 134
[2023-06-21 22:47] LABS: BASOPHILS # (AUTO) 0.06 K/uL (0.00-0.20); BASOPHILS % (AUTO) 0.8 % (0.0-5.0); EOSINOPHILS # (AUTO) 0.24 K/uL (0.00-0.70); EOSINOPHILS % (AUTO) 3.3 % (0.0-8.0); HEMATOCRIT 47.6 % (42-54); IMMATURE GRANULOCYTE ABSOLUTE 0.03 K/uL (0-1); LYMPHOCYTES # (AUTO) 2.8 K/uL (1.0-4.8); LYMPHOCYTES % (AUTO) 38.2 % (21.0-51.0); MEAN CORPUSCULAR HEMOGLOBIN 31.1 pg (27.0-33.0); MEAN CORPUSCULAR HGB CONC 34.9 g/dL (32.0-36.0); MEAN CORPUSCULAR VOLUME 89.1 fL (79-99); MONOCYTES # (AUTO) 0.7 K/uL (0.1-1.0); MONOCYTES % (AUTO) 9.1 % (3.0-13.0); NEUTROPHILS # (AUTO) 3.5 K/uL (1.8-7.7); NEUTROPHILS % (AUTO) 48.2 % (40.0-77.0); PLATELET COUNT (AUTO) 189 K/uL (130-400); RED BLOOD CELL COUNT(AUTO) 5.34 MIL/uL (4.50-6.20); RED CELL DISTRIBUTION WIDTH 12.5 % (11.0-15.5); WHITE BLOOD COUNT (AUTO) 7.2 K/uL (4.8-10.8)
[2023-06-21 23:00] LABS: POTASSIUM 3.5 mmol/L (3.5-5.1)
[2023-06-21] MEDS ORDERED: MORPHINE 2 MG SYG IVP ONE (23:00)
[2023-06-21] MEDS ORDERED: MAG/ALUM/SIMETH 30 ML UDCUP PO ONE (23:00)
[2023-06-21] MEDS ORDERED: LIDOCAINE HCL 2% VISCOUS 15 ML UDCUP PO ONE (23:00)
[2023-06-21] MEDS ORDERED: METOCLOPRAMIDE 10 MG/2 ML VIAL IVP ONE (23:00)
[2023-06-21] MEDS ORDERED: FAMOTIDINE 20MG VIAL IV ONE (23:00)
[2023-06-21] MEDS ORDERED: DICYCLOMINE HCL 10 MG/5 ML ML PO ONE (23:00)
[2023-06-21 23:04] LABS: ADD UA MICROSCOPIC YES; APPEARANCE,URINE CLEAR (CLEAR); BILIRUBIN,URINE NEGATIVE (NEGATIVE); COLOR,URINE LIGHT-YELLOW (YELLOW); GLUCOSE, URINE (UA) >=1000 mg/dL (NEGATIVE); KETONES,URINE NEGATIVE (NEGATIVE); LEUKOCYTE ESTERASE ,URINE NEGATIVE Leu/uL (NEGATIVE); NITRATE,URINE NEGATIVE (NEGATIVE); OCCULT BLOOD,URINE NEGATIVE (NEGATIVE); PROTEIN,URINE NEGATIVE (NEGATIVE); UROBILINOGEN,URINE 0.2 mg/dL (0.2-1.0)
[2023-06-21 23:05] LABS: BILIRUBIN,TOTAL 0.3 mg/dL (0.2-1.0); SQUAMOUS EPITHELIAL CELL,UR RARE /HPF (0-2)
[2023-06-21] MEDS ORDERED: IOHEXOL 350 MG/ML 100ML INFUS..BTL IV ONE (23:06)
[2023-06-21] MEDS ORDERED: PANT40TA PO (23:56)
[2023-06-21] MEDS ORDERED: METO-296 PO (23:56)
[2023-06-22 00:15] VITALS: BP_DIAS 129; PULSE 80; RESP 17; O2SAT 97
== END 2023-06-22 00:16 | disposition home or self-care (01) ==
LOC: EDH 21:45
DX: R10.13 Epigastric pain (principal); K76.0 Fatty (change of) liver, not elsewhere classified; E11.9 Type 2 diabetes mellitus without complications; E78.00 Pure hypercholesterolemia, unspecified; I10 Essential (primary) hypertension; Z79.82 Long term (current) use of aspirin; Z88.1 Allergy status to other antibiotic agents
CPT/HCPCS: 99284; 74178; 96374; 71045; 96375; 84484; 80053; 83690; 85025; 81001; 36415; 93005; J3490; J2270; J2765; Q9967

== ENCOUNTER 2023-12-21 06:00 | Emergency (ER) | payer BC, MEDICAID ==
[~2023-12-21] VITALS: Ht 175.3 cm; Wt 112.5 kg
[~2023-12-21 06:00] MED LIST changes: +METO-296 PO; +PANT40TA PO
[2023-12-21] MEDS: KETOROLAC 30MG VIAL (30MG/ML) IM ONE (06:24)
[2023-12-21 10:19] VITALS: BP 138/97; PULSE 79; RESP 18; O2SAT 99
== END 2023-12-21 10:28 | disposition home or self-care (01) ==
LOC: EDH 06:00
DX: K40.90 Unilateral inguinal hernia, without obstruction or gangrene, not specified as recurrent (principal); F32.A Depression, unspecified; E11.9 Type 2 diabetes mellitus without complications; E78.00 Pure hypercholesterolemia, unspecified; I10 Essential (primary) hypertension; Z79.82 Long term (current) use of aspirin; Z88.1 Allergy status to other antibiotic agents; Z98.890 Other specified postprocedural states
CPT/HCPCS: 99284; 76882; 96372; J1885

== ENCOUNTER 2024-01-27 18:11 | Emergency (ER) | payer BC, MEDICAID ==
[~2024-01-27] VITALS: Ht 175.3 cm; Wt 108.9 kg
[2024-01-27] MEDS: ONDANSETRON 4MG INJ IVP ONE (18:37)
[2024-01-27] MEDS: KETOROLAC 30MG VIAL (30MG/ML) IVP ONE (18:37)
[2024-01-27] MEDS: MORPHINE 4 MG SYG IVP STA (18:38)
[2024-01-27] MEDS: CEFTRIAXONE 1G VIAL IVPB ONE (18:43)
[2024-01-27 19:33] VITALS: BP 138/92; PULSE 86; RESP 20; O2SAT 99
[2024-01-27] MEDS ORDERED: KETO10TA2 PO (19:35)
[2024-01-28] MEDS ORDERED: IBUP-2077 PO (17:04)
== END 2024-01-27 19:48 | disposition home or self-care (01) ==
LOC: EDH 18:11
DX: K08.89 Other specified disorders of teeth and supporting structures (principal); F32.A Depression, unspecified; E11.9 Type 2 diabetes mellitus without complications; E78.00 Pure hypercholesterolemia, unspecified; I10 Essential (primary) hypertension; Z79.82 Long term (current) use of aspirin; Z88.1 Allergy status to other antibiotic agents; Z98.890 Other specified postprocedural states
CPT/HCPCS: 99284; 96365; 96375; J0696; J2405; J2270; J1885; 96374

== ENCOUNTER 2024-01-28 15:55 | Emergency (ER) | payer BC, MEDICAID ==
[~2024-01-28] VITALS: Ht 175.3 cm; Wt 104.3 kg
[~2024-01-28 15:55] MED LIST changes: +KETO10TA2 PO
[2024-01-28] MEDS ORDERED: KETOROLAC 60 MG VIAL (30MG/ML) IM ONE (17:00)
[2024-01-28] MEDS ORDERED: CEFTRIAXONE 1G VIAL IM ONE (17:00)
[2024-01-28] MEDS ORDERED: HYDROCODONE/ACETAMINOPHEN 5/325 MG TAB PO ONE (17:00)
[2024-01-28 17:01] VITALS: BP 149/88; PULSE 74; RESP 18; O2SAT 97
[2024-01-28] MEDS ORDERED: IBUP-2077 PO (17:04)
== END 2024-01-28 17:39 | disposition home or self-care (01) ==
LOC: EDH 15:55
DX: K02.9 Dental caries, unspecified (principal); I10 Essential (primary) hypertension; E11.9 Type 2 diabetes mellitus without complications; E78.00 Pure hypercholesterolemia, unspecified; Z79.82 Long term (current) use of aspirin; Z79.899 Other long term (current) drug therapy; Z98.890 Other specified postprocedural states; Z88.8 Allergy status to other drugs, medicaments and biological substances
CPT/HCPCS: 99282; J0696; J1885

== ENCOUNTER 2024-10-23 20:23 | Emergency (ER) | payer BC ==
[~2024-10-23] VITALS: Ht 175.3 cm; Wt 110.2 kg
[~2024-10-23 20:23] MED LIST changes: -GLIP-162 PO; +GLIP-300 PO; +IBUP-2077 PO; +IOHEXOL 350 MG/ML 100ML INFUS..BTL IV ONE
--- NOTE | 2024-10-23 20:50 | EKG ---
[facility] Test Date: 2024-10-23 Test Time: 20:49:18 Pat Name: QUIQUE GUNTER Department: [facility] Room: Gender: Equipment Man: [id number] 1975 Requested By: RUBY TOSCANO Order Number: [id number] Reading MD: Tex Torres Measurements Intervals [place] Rate: 72 P: 22 WI: 175 QRS: 34 QRSD: 92 T: 2 QT: 353 QTc: 386 Interpretive Statements Sinus rhythm Compared to ECG 06/21/2023 23:52:00 No significant changes Electronically Signed On 10-24-2024 23:32:28 CDT by Tex Torres Please click the below link to view image of tracing.
--- NOTE | 2024-10-23 21:12 | HMCIMG ---
Exam Type: US ABDOMINAL RUQ\E\LTD Clinical Information: abd pain Comparison: None Findings: The liver shows fatty infiltration and is enlarged, measuring 19.3 cm and is otherwise unremarkable. Doppler evaluation shows patent portal and hepatic veins. The gallbladder shows no significant abnormalities. Specifically, no calculi are seen. No bile duct dilatation is noted. The gallbladder wall measures 2 mm. The common bile duct measures 5 mm. The right kidney measures 12.1 x 6 .3 cm- it shows no hydronephrosis or calculi, masses or other abnormalities. The pancreas is unremarkable. The aorta and inferior vena cava show no significant abnormalities. IMPRESSION: FATTY LIVER INFILTRATION AND HEPATOMEGALY. OTHERWISE NORMAL RIGHT UPPER QUADRANT ABDOMINAL ULTRASOUND.
[2024-10-23 21:17] LABS: ADD UA MICROSCOPIC YES; APPEARANCE,URINE CLEAR (CLEAR); BILIRUBIN,URINE NEGATIVE (NEGATIVE); COLOR,URINE LIGHT-YELLOW (YELLOW); GLUCOSE, URINE (UA) >=1000 mg/dL (NEGATIVE); KETONES,URINE NEGATIVE (NEGATIVE); LEUKOCYTE ESTERASE ,URINE NEGATIVE Leu/uL (NEGATIVE); NITRATE,URINE NEGATIVE (NEGATIVE); OCCULT BLOOD,URINE NEGATIVE (NEGATIVE); PROTEIN,URINE NEGATIVE (NEGATIVE); UROBILINOGEN,URINE 0.2 mg/dL (0.2-1.0)
[2024-10-23 21:21] LABS: RBC,URINE 0-1 /HPF (0-1); SQUAMOUS EPITHELIAL CELL,UR RARE /HPF (0-2); WBC,URINE 0-1 /HPF (0-1)
--- NOTE | 2024-10-23 21:33 | ERN ---
ED Note History of Present Illness Stated Complaint: ABD PAIN Chief Complaint: Abdominal Pain Time Seen by MD: 20:24 Time Seen by Midlevel: 20:24 Dictation: The patient is a 49-year-old male with a history of diabetes, hyperlipidemia presents to the emergency department with complaints of epigastric pain for one week. Patient denies any nausea, vomiting, diarrhea, constipation. Denies any fevers. Denies any urinary discomfort. Allergies: Coded Allergies: azithromycin (Unverified Allergy, Unknown, 01/16/19) cyclobenzaprine (Unverified Allergy, Unknown, 01/16/19) pseudoephedrine (Unverified Allergy, Unknown, 01/16/19) Home Meds Active Scripts Ibuprofen (Ibuprofen 800 mg Tab) 800 Mg Tab, 800 MG PO Q8H PRN for fever or pain, #30 TAB 0 Refills Prov:MARCO ANTONIO NOVA NP 01/28/24 Ketorolac Tromethamine (Ketorolac Tromethamine) 10 Mg Tablet, 10 MG PO TID for 5 Days, #15 TAB Prov:JOSÉ MIGUEL TRIVEDI 01/27/24 Metoclopramide HCl (Reglan) 10 Mg Tablet, 10 MG PO QID, #120 TAB 2 Refills Prov:DEJON NEAL Sr., MD 06/21/23 Pantoprazole Sodium (Protonix) 40 Mg Tablet.dr, 40 MG PO BID, #60 TAB 2 Refills Prov:DEJON NEAL Sr., MD 06/21/23 Acetaminophen with Codeine (Acetaminophen-Cod #3 Tablet) 1 Each Tablet, 1 EACH PO QID, #15 TAB Prov:SANTA OSBORN MD 01/23/22 Ibuprofen (Ibuprofen) 600 Mg Tablet, 600 MG PO Q6H PRN for PAIN, #30 TAB Prov:SANTA OSBORN MD 01/23/22 Glipizide (Glipizide ER) 5 Mg Tab.er.24, 5 MG PO DAILYBKFST for 30 Days, #30 TAB 0 Refills Prov:JOHN BELTRAN MD 10/05/21 [place]-3/Dha/Epa/Fish Oil (Fish Oil 1,000 mg Softgel) 1 Each Capsule, 1 EACH PO TID for 30 Days, #90 CAP 0 Refills Prov:JOHN BELTRAN MD 10/05/21 Reported Medications Metoprolol Tartrate (Metoprolol Tartrate) 25 Mg Tablet, 25 MG PO BID, TAB 10/04/21 Paroxetine HCl (Paroxetine HCl) 20 Mg Tablet, 20 MG PO BID, TAB 02/04/21 Lisinopril (Lisinopril) 20 Mg Tablet, 20 MG PO BID, TAB 02/04/21 Aspirin (ASPIRIN 81 MG ECTAB) 81 Mg Ectab, 81 MG PO DAILY, TAB.EC 02/04/21 Past Medical History Past Medical History: Diabetes-Type II, High Cholesterol, Hypertension Surgical History: Other Surgical History Other: INGUINAL HERNIA REPAIR, RIGHT HAND REPAIR Social History: Negative, Lives with family RN Note Reviewed/Agreed w/PFSH: Yes Review of System Dictation Constitutional: Negative for fever,chills, and weight loss Eyes: Negative for injury, pain,redness, and discharge ENT: Negative for injury,pain or swelling Cardiovascular: Negative for chest pain, palpitations, and edema Respiratory: Negative for shortness of breath, cough, and wheezing, Abdomen/GI: Negative for, nausea, vomiting, diarrhea, and constipation positive for abdominal pain Back: Negative for injury and pain : Negative for injury, bleeding and discharge MS/Extremity: Negative for injury and deformity Skin: Negative for rash, and discoloration Neuro: Negative for headache, weakness, numbness, tingling, and seizure Psych: Negative for suicide ideation, homicidal ideation, and hallucinations Initial Vital Sign VS Vital Signs Date Time Temp Pulse Resp B/P (MAP) Pulse Ox O2 Delivery O2 Flow Rate FiO2 10/23/24 20:35 98.1 75 18 135/63 97 10/23/24 20:35 Room Air* 0 21 Physical Exam Dictation Vital Signs reviewed General Appearance: Alert, oriented x 3, no acute distress, well developed, nourished. Head and Face: non-traumatic. Eyes: PERRL, pink conjunctivas, eyelid no trauma, anterior chamber with arcus senilis. Ears: Pinnas intact and no signs of trauma or erythema ear canals clear and no discharge TM no erythema Nose: No discharge, no bleeding. Oropharynx: Mouth normal, tongue pink. pharynx clear,no erythema, tonsils no exudates, no abscesses noted, mucous membrane moist Neck: Supple, non-tender, no thyromegaly, no masses, no JVD, no bruits Breast:Deferred Chest:No tenderness, no crepitus, no paradoxical movement, no retractions Lungs:Clear, well-ventilated, symmetric, no rales, no wheezing, no rhonchi, no stridor, good breath sounds bilaterally Heart: Regular rate, regular rhythm, no murmur, no gallops Vascular: no peripheral edema, Abdomen: Soft, positive bowel sounds, nondistended, no guarding, Right upper abdominal pain tenderness,, no rebound, no masses no hepatomegaly, no splenomegaly, no Ortiz's sign, no hernias. Rectal: Deferred Genital: Deferred Neurological: Normal speech, motor function intact, sensory function intact Musculoskeletal: Neck nontender, full range of motion, back nontender, full range of motion, Extremities: nontender, full range of motion Skin: Color pink, dry, no turgor, no rash, no lacerations, no abrasions, no contusions. Lymphatic: Deferred Results (Laboratory/Radiology) Laboratory/Radiology Laboratory Tests Test 10/23/24 21:00 10/23/24 22:25 Urine Color LIGHT-YELLOW (YELLOW) Urine Appearance CLEAR (CLEAR) Urine pH 7.0 (5.0-8.0) Urine Specific [place] 1.037 (1.001-1.031) Urine Protein NEGATIVE mg/dL (NEGATIVE) Urine Glucose (UA) >=1000 mg/dL (NEGATIVE) H Urine Ketones NEGATIVE mg/dL (NEGATIVE) Urine Occult Blood NEGATIVE (NEGATIVE) Urine Nitrate NEGATIVE (NEGATIVE) Urine Bilirubin NEGATIVE mg/dL (NEGATIVE) Urine Urobilinogen 0.2 mg/dL (0.2-1.0) Urine Leukocyte Esterase NEGATIVE Cass/uL Urine RBC 0-1 /HPF (0-1) Urine WBC 0-1 /HPF (0-1) Urine Squamous Epithelial Cells RARE /HPF (0-2) Urine Bacteria None /HPF (None Seen) White Blood Count 6.3 K/uL (4.8-10.8) Red Blood Count 4.96 MIL/uL (4.50-6.20) Hemoglobin 15.2 g/dL (14.0-18.0) Hematocrit 44.5 % (42-54) Mean Corpuscular Volume 89.7 fL (79-99) Mean Corpuscular Hemoglobin 30.6 pg (27.0-33.0) Mean Corpuscular Hemoglobin Concent 34.2 g/dL (32.0-36.0) Red Cell Distribution Width 12.5 % (11.0-15.5) Platelet Count 175 K/uL (130-400) Mean Platelet Volume 10.0 fL (7.5-10.5) Immature Granulocyte % (Auto) 0.2 % (0-1) Neutrophils (%) (Auto) 52.7 % (40.0-77.0) Lymphocytes (%) (Auto) 34.3 % (21.0-51.0) Monocytes (%) (Auto) 8.9 % (3.0-13.0) Eosinophils (%) (Auto) 3.3 % (0.0-8.0) Basophils (%) (Auto) 0.6 % (0.0-5.0) Neutrophils # (Auto) 3.3 K/uL (1.8-7.7) Lymphocytes # (Auto) 2.2 K/uL (1.0-4.8) Monocytes # (Auto) 0.6 K/uL (0.1-1.0) Eosinophils # (Auto) 0.21 K/uL (0.00-0.70) Basophils # (Auto) 0.04 K/uL (0.00-0.20) Absolute Immature Granulocyte (auto 0.01 K/uL (0-1) Nucleated Red Blood Cells 0.0 % (0.0-0.19) Sodium Level 138 mmol/L (136-145) Potassium Level 4.1 mmol/L (3.5-5.1) Chloride Level 103 mmol/L (101-111) Carbon Dioxide Level 28 mmol/L (21-32) Blood Urea Nitrogen 13 mg/dL (7-18) Creatinine 0.9 mg/dL (0.5-1.3) Glomerular Filtration Rate Calc 106 mL/min (>90) Random Glucose 200 mg/dL (70-105) H Total Calcium 9.2 mg/dL (8.5-10.1) Total Bilirubin 0.3 mg/dL (0.2-1.0) Direct Bilirubin 0.1 mg/dL (0.0-0.3) Aspartate Amino Transf (AST/SGOT) 22 U/L (10-37) Alanine Aminotransferase (ALT/SGPT) 49 U/L (12-78) Alkaline Phosphatase 63 U/L (50-136) Troponin I High Sensitivity 5 ng/L (4-75) Total Protein 7.5 g/dL (6.0-8.3) Albumin 3.8 g/dL (3.5-5.0) Lipase 53 U/L (16-77) REASON: abd pain ORDERING PHYSICIAN: [facility] PROCEDURE: ABDRUQLTD - US ABDOMINAL RUQ\LTD Exam Type: US ABDOMINAL RUQ\E\LTD Clinical Information: abd pain Comparison: None Findings: The liver shows fatty infiltration and is enlarged, measuring 19.3 cm and is otherwise unremarkable. Doppler evaluation shows patent portal and hepatic veins. The gallbladder shows no significant abnormalities. Specifically, no calculi are seen. No bile duct dilatation is noted. The gallbladder wall measures 2 mm. The common bile duct measures 5 mm. The right kidney measures 12.1 x 6 .3 cm- it shows no hydronephrosis or calculi, masses or other abnormalities. The pancreas is unremarkable. The aorta and inferior vena cava show no significant abnormalities. IMPRESSION: FATTY LIVER INFILTRATION AND HEPATOMEGALY. OTHERWISE NORMAL RIGHT UPPER QUADRANT ABDOMINAL ULTRASOUND. REASON: Abdominal Pain ORDERING PHYSICIAN: [facility] PROCEDURE: ABD PEL W - CT ABDOMEN/PELVIS W/CONTRAST CT ABDOMEN/PELVIS W/CONTRAST HISTORY: Abdominal pain COMPARISON: June 21, 2023 TECHNIQUE: Multiple sequential axial images of the abdomen and pelvis were obtained from the dome of the diaphragm through symphysis pubis. Patient was given 100 cc of Omnipaque through intravenous route. Oral contrast was not given. FINDINGS: No pleural effusion is seen bilaterally. There is no evidence of parenchymal disease or pulmonary nodule of the visualized lower lungs. Degenerative changes of the thoracolumbar spine are present. The heart is not enlarged. Liver is enlarged with fatty changes measuring 21 cm. The liver, spleen, adrenal glands and pancreas are unremarkable. There is no evidence of hydronephrosis bilaterally. No evidence of renal stone is seen. There is left retroaortic renal vein. There is fluid-filled small bowel loops may be related to enteritis. Fecal material is seen in the colon. There are normal size retroperitoneal and mesenteric lymph nodes. No ascites is seen. Atherosclerotic changes are present. Pelvic sidewalls are symmetric bilaterally. Bladder is poorly distended. IMPRESSION: 1. Fluid-filled small bowel loops may be related to enteritis. CT was performed with one or more following dose reduction techniques: automated exposure control, adjustment of the mA and kv according to patient's size, or use of a iterative reconstruction technique. Labs Reviewed?: Yes EKG: (+) rhythm (Sinus rhythm) EKG Comment: Date:10/23/2024 Time:2048 Ventricular rate:72 MO interval:175 QRS duration:92 QT/QTc:353 EKG interpretation: Sinus rhythm Reviewed by ED Attending no STEMI ED Course ED Course Orders Procedure Category Date Status Time Cbc With Differential LAB 10/23/24 Complete 20:39 Troponin I High LAB 10/23/24 Complete Sensitivity 20:39 Urinalysis Profile LAB 10/23/24 Complete 20:39 12 Lead Ekg Tracing- EKG 10/23/24 Complete Technical 20:39 0.9%Nacl 1000ml (Ns PHA 10/23/24 Complete 1000ml) 21:00 Morphine 4mg Syg PHA 10/23/24 Complete (Morphine 4mg Syg) 21:00 Ondansetron 4mg Inj PHA 10/23/24 Complete (Zofran 4mg Inj) 21:00 Pantoprazole 40mg Inj PHA 10/23/24 Complete (Protonix 40mg Inj 21:00 Lipase LAB 10/23/24 Complete 20:39 Basic Metabolic Panel LAB 10/23/24 Complete 20:39 Hepatic Function Panel LAB 10/23/24 Complete 20:39 Us Abdominal Ruq\Ltd US 10/23/24 Resulted 20:39 Ct Abdomen/Pelvis CT 10/23/24 Resulted W/Contrast 23:56 Iohexol (Omnipaque) PHA 10/24/24 Complete 00:25 Current Medications Medications (Trade) Dose Ordered Sig/Daina Route PRN Reason Start Time Stop Time Status Last Admin Dose Admin Iohexol (Omnipaque) 35,000 mg STK-MED ONCE IV 10/24/24 00:25 10/24/24 00:25 DC Morphine Sulfate (morPHINE 4MG SYG) 4 mg ONCE ONCE IVP 10/23/24 21:00 10/23/24 21:01 DC 10/23/24 23:27 Ondansetron HCl (zoFRAN 4MG INJ) 4 mg ONCE ONCE IVP 10/23/24 21:00 10/23/24 21:01 DC 10/23/24 23:26 Pantoprazole Sodium (PROTonix 40MG INJ) 40 mg ONCE ONCE IVP 10/23/24 21:00 10/23/24 21:01 DC 10/23/24 23:26 Sodium Chloride 1,000 ml @ 0 mls/hr ONCE ONCE IV 10/23/24 21:00 10/23/24 21:01 DC 10/23/24 23:27 Vital Signs Date Time Temp Pulse Resp B/P (MAP) Pulse Ox O2 Delivery O2 Flow Rate FiO2 10/23/24 23:56 98.2 78 20 146/58 98 Room Air* 0 21 10/23/24 20:35 98.1 75 18 135/63 97 Room Air* 0 21 10/23/24 20:35 98.1 75 18 135/63 97 Medical Decision Making MDM The patient is a 49-year-old male with a history of diabetes, hyperlipidemia presents to the emergency department with complaints of epigastric pain for one week. Patient denies any nausea, vomiting, diarrhea, constipation. Denies any fevers. Denies any urinary discomfort. CBC showed no leukocytosis, no anemia, chemistry showed normal renal function, slightly elevated blood glucose, negative lipase, normal liver enzymes. Negative troponin, urinalysis unremarkable Ultrasound revealed a fatty liver. CT abdomen showed fluid-filled small bowel loop, patient with no nausea or vomiting, reports normal bowel movements. Last bowel movement was today. Patient in no acute distress, nontoxic appearance, will be discharged to follow up with PCP. Differential diagnosis: Gastritis, gastroenteritis, dehydration, electrolyte imbalance, constipation Need for hospitalization: Patient does not meet criteria for hospitalization. There are no social concerns with this patient. DX & DISP Disposition: Discharge Departure Impression: Primary Impression: Acute abdominal pain Additional Impression: Gastritis Condition: Stable Scripts Pantoprazole Sodium (Pantoprazole Sodium) 20 Mg Tablet.dr 1 TAB PO DAILY for 30 Days, #30 TAB 0 Refills Prov: RUBY TOSCANO PHOTOGRAPHER LITHOGRAPHIC 10/24/24 Mag Hydrox/Al Hydrox/Simeth (Maalox Maximum Strength Susp) 400 Mg-400 Mg-40 Mg/5 Ml Oral.susp 20 ML PO Q6H for 5 Days, #355 ML 0 Refills Prov: RUBY TOSCANO PHOTOGRAPHER LITHOGRAPHIC 10/24/24 Additional Instructions: Please follow up with the primary doctor in 1-2 days. If symptoms worsen please return to ER. Avoid any foods that cause you discomfort. FOLLOW-UP WITH PRIMARY CARE PROVIDER IN 1 TO 2 DAYS. TAKE MEDICATIONS DIRECTED HERE IN THE EMERGENCY ROOM. OKAY TO CONTINUE HOME MEDICATIONS UNLESS OTHERWISE DISCUSSED DURING YOUR VISIT IN THE EMERGENCY ROOM TODAY. RETURN TO YOUR NEAREST EMERGENCY ROOM IF SYMPTOMS WORSEN OR IF THERE IS NO IMPROVEMENT. CALL 911 IF YOU NEED IMMEDIATE ASSISTANCE. TAKE TYLENOL OR MOTRIN [id number] NEEDED AND IF NO CONTRAINDICATIONS ARE PRESENT. INCREASE ORAL HYDRATION. A WOUND CULTURE OR URINE CULTURE WAS ORDERED HERE IN THE EMERGENCY ROOM DEPARTMENT PLEASE FOLLOW-UP WITH PRIMARY CARE PROVIDER AND ADVISE THEM TO GET REPEAT PORTS FROM OUR FACILITY. IF YOU HAD ANY CHRISTIAN WRAP/SPLINTS THAT WERE APPLIED HERE, PLEASE DO NOT REMOVE THEM UNTIL YOU SEE YOUR PRIMARY CARE OR SPECIALTY. Referrals: DEYANIRA TRIVEDI MD (PCP) Time of Disposition: 01:23 I have reviewed the case, and I agree with, Diagnosis and Plan RUBY TOSCANO PHOTOGRAPHER LITHOGRAPHIC Oct 23, 2024 21:33
[2024-10-23 22:31] LABS: BASOPHILS # (AUTO) 0.04 K/uL (0.00-0.20); BASOPHILS % (AUTO) 0.6 % (0.0-5.0); EOSINOPHILS # (AUTO) 0.21 K/uL (0.00-0.70); EOSINOPHILS % (AUTO) 3.3 % (0.0-8.0); HEMATOCRIT 44.5 % (42-54); IMMATURE GRANULOCYTE ABSOLUTE 0.01 K/uL (0-1); LYMPHOCYTES # (AUTO) 2.2 K/uL (1.0-4.8); LYMPHOCYTES % (AUTO) 34.3 % (21.0-51.0); MEAN CORPUSCULAR HEMOGLOBIN 30.6 pg (27.0-33.0); MEAN CORPUSCULAR HGB CONC 34.2 g/dL (32.0-36.0); MEAN CORPUSCULAR VOLUME 89.7 fL (79-99); MONOCYTES # (AUTO) 0.6 K/uL (0.1-1.0); MONOCYTES % (AUTO) 8.9 % (3.0-13.0); NEUTROPHILS # (AUTO) 3.3 K/uL (1.8-7.7); NEUTROPHILS % (AUTO) 52.7 % (40.0-77.0); PLATELET COUNT (AUTO) 175 K/uL (130-400); RED BLOOD CELL COUNT(AUTO) 4.96 MIL/uL (4.50-6.20); RED CELL DISTRIBUTION WIDTH 12.5 % (11.0-15.5); WHITE BLOOD COUNT (AUTO) 6.3 K/uL (4.8-10.8)
[2024-10-23] MEDS: PANTOPrazole 40 MG/VIAL IVP ONE (23:26)
[2024-10-23] MEDS: ondanSETRON 4MG INJ IVP ONE (23:26)
[2024-10-23] MEDS: morPHINE 4 MG SYG IVP ONE (23:27)
[2024-10-23] MEDS: 0.9%NACL 1000ML 1,000 ML IV ONE (23:27)
[2024-10-23 23:32] LABS: CREATININE 0.9 mg/dL (0.5-1.3); POTASSIUM 4.1 mmol/L (3.5-5.1)
[2024-10-23 23:36] LABS: ALBUMIN 3.8 g/dL (3.5-5.0); BILIRUBIN,DIRECT 0.1 mg/dL (0.0-0.3); BILIRUBIN,TOTAL 0.3 mg/dL (0.2-1.0); TOTAL PROTEIN, SERUM 7.5 g/dL (6.0-8.3)
[2024-10-24] MEDS ORDERED: IOHEXOL 350 MG/ML 100ML INFUS..BTL IV ONE (00:25)
--- NOTE | 2024-10-24 01:11 | HMCIMG ---
CT ABDOMEN/PELVIS W/CONTRAST HISTORY: Abdominal pain COMPARISON: June 21, 2023 TECHNIQUE: Multiple sequential axial images of the abdomen and pelvis were obtained from the dome of the diaphragm through symphysis pubis. Patient was given 100 cc of Omnipaque through intravenous route. Oral contrast was not given. FINDINGS: No pleural effusion is seen bilaterally. There is no evidence of parenchymal disease or pulmonary nodule of the visualized lower lungs. Degenerative changes of the thoracolumbar spine are present. The heart is not enlarged. Liver is enlarged with fatty changes measuring 21 cm. The liver, spleen, adrenal glands and pancreas are unremarkable. There is no evidence of hydronephrosis bilaterally. No evidence of renal stone is seen. There is left retroaortic renal vein. There is fluid-filled small bowel loops may be related to enteritis. Fecal material is seen in the colon. There are normal size retroperitoneal and mesenteric lymph nodes. No ascites is seen. Atherosclerotic changes are present. Pelvic sidewalls are symmetric bilaterally. Bladder is poorly distended. IMPRESSION: 1. Fluid-filled small bowel loops may be related to enteritis. CT was performed with one or more following dose reduction techniques: automated exposure control, adjustment of the mA and kv according to patient's size, or use of a iterative reconstruction technique.
[2024-10-24] MEDS ORDERED: MAG-55 PO (01:23)
[2024-10-24] MEDS ORDERED: PANT20TA18 PO (01:23)
[2024-10-24 01:57] VITALS: BP 152/64; PULSE 77; RESP 19; TEMP 98.2; O2SAT 96
== END 2024-10-24 02:03 | disposition home or self-care (01) ==
LOC: EDH 20:23
DX: K29.70 Gastritis, unspecified, without bleeding (principal); E11.9 Type 2 diabetes mellitus without complications; E78.00 Pure hypercholesterolemia, unspecified; I10 Essential (primary) hypertension; Z79.82 Long term (current) use of aspirin; Z79.899 Other long term (current) drug therapy; Z88.1 Allergy status to other antibiotic agents; Z98.890 Other specified postprocedural states
CPT/HCPCS: 99285; 74177; 96374; 76705; 96375; 80076; 84484; 80048; 83690; 85025; 81001; 36415; 93005; J7030; J2405; J2270; J2470; Q9967

== ENCOUNTER 2024-11-21 17:26 | Emergency (ER) | payer BC ==
[~2024-11-21] VITALS: Ht 175.3 cm; Wt 108.9 kg
[~2024-11-21 17:26] MED LIST changes: -IOHEXOL 350 MG/ML 100ML INFUS..BTL IV ONE; +MAG-55 PO; +PANT20TA18 PO
--- NOTE | 2024-11-21 18:19 | HMCIMG ---
LEFT HAND RADIOGRAPHS - 3 VIEWS INDICATION: Pain; No specific site of pain/injury provided in patient history. COMPARISON: None FINDINGS: AP, lateral, and oblique views. No acute fracture of subluxation identified. Scaphoid bone is intact. Carpal alignment and ulnar variance is within normal limits. No radiopaque foreign body noted. IMPRESSION: No evidence for fracture or subluxation.
--- NOTE | 2024-11-21 18:19 | HMCIMG ---
RIGHT KNEE RADIOGRAPHS - 3 VIEWS INDICATION: Pain COMPARISON: None FINDINGS: AP, lateral, and oblique views. No acute fracture or dislocation identified. No significant joint effusion is present. IMPRESSION: No evidence for fracture or dislocation.
--- NOTE | 2024-11-21 18:20 | HMCIMG ---
LEFT RIBS/CHEST RADIOGRAPHS - 6 VIEWS INDICATION: Left rib pain after injury COMPARISON: None FINDINGS: Heart size is normal. Lungs are clear. No evidence for pneumothorax or pleural effusion. No evidence for pulmonary parenchymal contusion. No rib fracture identified. No radiopaque foreign body noted. IMPRESSION: 1. No rib fracture identified. 2. No radiographic evidence for any acute cardiopulmonary process..
[2024-11-21] MEDS: ketOROlac 15MG/ML VIAL (15MG/ML) IM ONE (18:41)
[2024-11-21] MEDS ORDERED: MELO-108 PO (19:05)
--- NOTE | 2024-11-21 19:06 | ERN ---
General Chief Complaint: Multiple Complaints Stated Complaint: LACERATION TO MIDDLE FINGER,RT KNEE AND LT RIB GALINA Time Seen by MD: 17:28 Time Seen by Midlevel: 17:28 Source: patient History of Present Illness Initial Comments 49-year-old male presents to the emergency department due to a fall. Patient complaining of right knee pain, left rib pain, and a laceration to the left middle finger. Patient denies any head injury, LOC, abdominal pain or further associated symptoms. Patient tripped and fell to his right side and cut himself with a chainsaw. PMHx DM, hypercholesterolemia, HTN Allergies: Coded Allergies: azithromycin (Unverified Allergy, Unknown, 01/16/19) cyclobenzaprine (Unverified Allergy, Unknown, 01/16/19) pseudoephedrine (Unverified Allergy, Unknown, 01/16/19) Home Meds Active Scripts Meloxicam (Meloxicam) 15 Mg Tablet, 1 TAB PO DAILY for 5 Days, #5 TAB 0 Refills Prov:BRITTON COLON 11/21/24 Pantoprazole Sodium (Pantoprazole Sodium) 20 Mg Tablet.dr, 1 TAB PO DAILY for 30 Days, #30 TAB 0 Refills Prov:RUBY TOSCANO [facility] 10/24/24 Mag Hydrox/Al Hydrox/Simeth (Maalox Maximum Strength Susp) 400 Mg-400 Mg-40 Mg/5 Ml Oral.susp, 20 ML PO Q6H for 5 Days, #355 ML 0 Refills Prov:RUBY TOSCANO [employer] 10/24/24 Ibuprofen (Ibuprofen 800 mg Tab) 800 Mg Tab, 800 MG PO Q8H PRN for fever or pain, #30 TAB 0 Refills Prov:MARCO ANTONIO NOVA NP 01/28/24 Ketorolac Tromethamine (Ketorolac Tromethamine) 10 Mg Tablet, 10 MG PO TID for 5 Days, #15 TAB Prov:JOSÉ MIGUEL TRIVEDI 01/27/24 Metoclopramide HCl (Reglan) 10 Mg Tablet, 10 MG PO QID, #120 TAB 2 Refills Prov:DEJON NEAL Sr., MD 06/21/23 Pantoprazole Sodium (Protonix) 40 Mg Tablet., 40 MG PO BID, #60 TAB 2 Refills Prov:DEJON NEAL Sr., MD 06/21/23 Acetaminophen with Codeine (Acetaminophen-Cod #3 Tablet) 1 Each Tablet, 1 EACH PO QID, #15 TAB Prov:SANTA OSBORN MD 01/23/22 Ibuprofen (Ibuprofen) 600 Mg Tablet, 600 MG PO Q6H PRN for PAIN, #30 TAB Prov:SANTA OSBORN MD 01/23/22 Glipizide (Glipizide ER) 5 Mg Tab.er.24, 5 MG PO DAILYBKFST for 30 Days, #30 TAB 0 Refills Prov:JOHN BELTRAN MD 10/05/21 [place]-3/Dha/Epa/Fish Oil (Fish Oil 1,000 mg Softgel) 1 Each Capsule, 1 EACH PO TID for 30 Days, #90 CAP 0 Refills Prov:JOHN BELTRAN MD 10/05/21 Reported Medications Metoprolol Tartrate (Metoprolol Tartrate) 25 Mg Tablet, 25 MG PO BID, TAB 10/04/21 Paroxetine HCl (Paroxetine HCl) 20 Mg Tablet, 20 MG PO BID, TAB 02/04/21 Lisinopril (Lisinopril) 20 Mg Tablet, 20 MG PO BID, TAB 02/04/21 Aspirin (ASPIRIN 81 MG ECTAB) 81 Mg Ectab, 81 MG PO DAILY, TAB.EC 02/04/21 Past Medical History Past Medical History: Diabetes-Type II, High Cholesterol, Hypertension Past Surgical History: Other Surgical History Other: INGUINAL HERNIA REPAIR, RIGHT HAND REPAIR Social History Social History: Negative, Lives with family ROS Dictation Constitutional: Negative for fever,chills, and weight loss Eyes: Negative for injury, pain,redness, and discharge ENT: Negative for injury,pain or swelling Cardiovascular: Negative for chest pain, palpitations, and edema Respiratory: Negative for shortness of breath, cough, and wheezing, Chest: Positive for left rib pain Abdomen/GI: Negative for abdominal pain, nausea, vomiting, diarrhea, and constipation Back: Negative for injury and pain : Negative for painful urination, bleeding or discharge MS/Extremity: Positive for right knee pain Negative for injury and deformity Skin: Positive for left hand middle finger laceration Negative for rash, and discoloration Neuro: Negative for headache, weakness, numbness, tingling, and seizure Psych: Negative for suicide ideation, homicidal ideation, and hallucinations Physical Exam Physical Exam Dictation General: awake, alert, no acute distress Head/Face: Normocephalic, atraumatic Eyes: PERRL, EOMI, normal conjunctiva ENT: oral cavity clear, oral mucosa moist Neck: Supple, normal range of motion Cardiovascular: RRR, normal S1/S2 Respiratory: CTAB, no respiratory distress, no rales or wheezes Chest: No ecchymosis, no obvious deformity, no step-offs, mild tenderness to the left side mid axillary Abdomen: Soft, non-tender, non-distended, no guarding or rebound. Skin: Warm, dry, normal turgor, no rash. Left hand 3rd digit distal aspect skin avulsion on the medial side, proximal medial skin avulsion MS/Extremity: Pulses equal, no cyanosis, neurovascular intact, FROM. Right knee: Mild tenderness on palpation, restricted range of motion due to pain, no obvious deformities, no ecchymosis Neuro: COAx4, GCS 15, strength 5/5, CN 2-12 intact, normal cerebellar exam, nor mal gait Psych: Normal behavior, mood, and affect normal Results EKG/XRAY/US/CT/MRI X-RAY Comment REASON: Pain, injury ORDERING PHYSICIAN: BRITTON COLON PROCEDURE: HAND 3V LT - HAND 3+VWS LT LEFT HAND RADIOGRAPHS - 3 VIEWS INDICATION: Pain; No specific site of pain/injury provided in patient history. COMPARISON: None FINDINGS: AP, lateral, and oblique views. No acute fracture of subluxation identified. Scaphoid bone is intact. Carpal alignment and ulnar variance is within normal limits. No radiopaque foreign body noted. IMPRESSION: No evidence for fracture or subluxation. DICTATED BY: PANDA SARABIA MD DATE: 11/21/241815 REASON: Pain, injury ORDERING PHYSICIAN: BRITTON COLON PROCEDURE: KNEE 3V RT - KNEE 3VWS RT RIGHT KNEE RADIOGRAPHS - 3 VIEWS INDICATION: Pain COMPARISON: None FINDINGS: AP, lateral, and oblique views. No acute fracture or dislocation identified. No significant joint effusion is present. IMPRESSION: No evidence for fracture or dislocation. DICTATED BY: PANDA SARABIA MD DATE: 11/21/241815 REASON: Pain, injury ORDERING PHYSICIAN: BRITTON COLON PROCEDURE: RIB LT W C - RIBS UNI LT W PA CHEST 3+VWS LEFT RIBS/CHEST RADIOGRAPHS - 6 VIEWS INDICATION: Left rib pain after injury COMPARISON: None FINDINGS: Heart size is normal. Lungs are clear. No evidence for pneumothorax or pleural effusion. No evidence for pulmonary parenchymal contusion. No rib fracture identified. No radiopaque foreign body noted. IMPRESSION: 1. No rib fracture identified. 2. No radiographic evidence for any acute cardiopulmonary process.. DICTATED BY: PANDA SARABIA MD DATE: 11/21/241816 [facility] MDM: Differential diagnosis: Skin avulsion, rib contusion, fracture, sprain, strain Rationale: 49-year-old male presents to the emergency department due to a fall. Patient complaining of right knee pain, left rib pain, and a laceration to the left middle finger. Patient denies any head injury, LOC, abdominal pain or further associated symptoms. Patient tripped and fell to his right side and cut himself with a chainsaw. PMHx DM, hypercholesterolemia, HTN Per physical examination left hand 3rd digit distal aspect skin avulsion on the medial side, 3rd digit proximal medial skin avulsion, no obvious deformities of the right knee, no step-offs or ecchymosis of the left ribs, neurovascularly intact, no neurological deficits. X-rays obtained with no indications of fractures or dislocations of the right knee, left ribs, and left hand. Dermabond placed over the skin avulsions no laceration repair performed. Patient received ketorolac and placed on a knee immobilizer. Patient was educated on findings and diagnosis. Advised to follow up with PCP. Return to the emergency department if any worsening symptoms. Patient verbalized understanding. Patient stable for discharge. There are no social concerns with this patient. I independently interpreted the test that were performed, results were reviewed by me and considered findings on radiology if ordered. Medical management and examination interpretation discussions were had by me with other qualified healthcare professionals as indicated for the patient's care. ED Course Orders Procedure Category Date Status Time Hand 3+Vws Lt RAD 11/21/24 Resulted 17:33 Knee 3vws Rt RAD 11/21/24 Resulted 17:33 Ribs Uni Lt W Pa RAD 11/21/24 Resulted Chest 3+Vws 17:33 Ketorolac PHA 11/21/24 Complete Tromethamine 15mg/Ml 18:00 Crutches W/Training CPOE 4/8/25 Transmitted (Er) 18:52 Knee Immobilizer ASHLEY 11/21/24 In Process 18:52 Dermabond (Dermabond) PHA 11/21/24 Complete 19:04 Dermabond (Dermabond) PHA 11/21/24 Complete 19:07 Current Medications Medications (Trade) Dose Ordered Sig/Daina Route PRN Reason Start Time Stop Time Status Last Admin Dose Admin Ketorolac Tromethamine (toRADol) 15 mg ONCE ONCE IM 11/21/24 18:00 11/21/24 18:01 DC 11/21/24 18:41 Octyl Cyanoacrylate (Dermabond) 1 each ONCE STAT TP 11/21/24 19:04 11/21/24 19:07 DC 11/21/24 19:23 Octyl Cyanoacrylate (Dermabond) 1 each STK-MED ONCE TP 11/21/24 19:07 11/21/24 19:08 DC Vital Signs Date Time Temp Pulse Resp B/P (MAP) Pulse Ox O2 Delivery O2 Flow Rate FiO2 11/21/24 19:26 98.2 74 20 121/75 98 Room Air* 0 21 11/21/24 17:28 98.2 76 20 123/72 98 0 DX & DISP Disposition: Discharge Departure Impression: Primary Impression: Rib contusion Additional Impressions: Chest wall contusion, Contusion of right knee, Avulsion of skin of finger Condition: Stable Scripts Meloxicam (Meloxicam) 15 Mg Tablet 1 TAB PO DAILY for 5 Days, #5 TAB 0 Refills Prov: BRITTON COLON 11/21/24 Additional Instructions: Discharge home. Rest. Follow up with primary care DrChe in 24 hours. Return to the ER for any acute changes or worsening symptoms. If any medications were prescribed take as directed. Okay to continue home medications unless otherwise discussed during your visit in the emergency room today. Patient was also advised to follow-up with primary care physician in 1 to 2 days for continued monitoring. Referrals: DEYANIRA TRIVEDI MD (PCP) ROCCO GARZA MD, WILLIAM A DO I performed the substantive portion of the visit. I have reviewed and personally made and approve the management plan that is documented in the notes by myself or the MARIE. I acknowledge full responsibility for the patient's management plan. BRITTON COLON Nov 21, 2024 19:06
[2024-11-21] MEDS: OCTYL 2-CYANOACRYLATE 1 EACH TP STA (19:23)
[2024-11-21] MEDS: OCTYL 2-CYANOACRYLATE 1 EACH TP ONE (19:24)
[2024-11-21 19:26] VITALS: BP 121/75; PULSE 74; RESP 20; TEMP 98.3; O2SAT 98
== END 2024-11-21 19:43 | disposition home or self-care (01) ==
LOC: EDH 17:26
DX: S20.219A Contusion of unspecified front wall of thorax, initial encounter (principal); S80.01XA Contusion of right knee, initial encounter; S61.303A Unspecified open wound of left middle finger with damage to nail, initial encounter; E11.9 Type 2 diabetes mellitus without complications; E78.00 Pure hypercholesterolemia, unspecified; I10 Essential (primary) hypertension; Z79.1 Long term (current) use of non-steroidal anti-inflammatories (NSAID); Z79.82 Long term (current) use of aspirin; Z79.899 Other long term (current) drug therapy; Z88.1 Allergy status to other antibiotic agents; W01.0XXA Fall on same level from slipping, tripping and stumbling without subsequent striking against object, initial encounter; Y93.89 Activity, other specified; Y92.89 Other specified places as the place of occurrence of the external cause; Y99.8 Other external cause status
CPT/HCPCS: 99284; 73130; 73562; 71101; 96372; J1885

== ENCOUNTER 2025-06-12 17:46 | Emergency (ER) | payer BC ==
[~2025-06-12] VITALS: Ht 172.7 cm; Wt 113.4 kg
[~2025-06-12 17:46] MED LIST changes: +IBUP-1492 PO; -IBUP-2070 PO; +MELO-108 PO
[2025-06-12 18:08] LABS: IMMATURE GRANULOCYTE ABSOLUTE 0.02 K/uL (0-1); NUCLEATED RED BLOOD CELLS 0.0 % (0.0-0.19); PLATELET COUNT (AUTO) 192 K/uL (130-400); RED BLOOD CELL COUNT(AUTO) 5.16 MIL/uL (4.50-6.20); RED CELL DISTRIBUTION WIDTH 12.6 % (11.0-15.5); WHITE BLOOD COUNT (AUTO) 7.6 K/uL (4.8-10.8)
[2025-06-12 18:16] LABS: CREATININE 0.9 mg/dL (0.5-1.3); GLOMERULAR FILTR. RATE CALC 105.0 mL/min (>90); GLUCOSE,RANDOM 290.0 mg/dL (70-105); SODIUM SERUM 134.0 mmol/L (136-145); UREA NITROGEN, BLOOD 15.0 mg/dL (7-18)
--- NOTE | 2025-06-12 18:19 | EKG ---
[facility] Test Date: 2025-06-12 Test Time: 17:57:05 Pat Name: QUIQUE GUNTER Department: [facility] Room: Gender: Legal Assistant: [facility] : 1975 Requested By: JOSÉ MIGUEL TRIVEDI Order Number: [id number] Reading MD: Zechariah Carroll Measurements Intervals [place] Rate: 96 P: 44 TX: 159 QRS: 45 QRSD: 91 T: 3 QT: 316 QTc: 400 Interpretive Statements Sinus rhythm Compared to ECG 10/23/2024 20:49:18 No significant changes Electronically Signed On 06-14-2025 17:42:37 CDT by Zechariah Carroll Please click the below link to view image of tracing.
[2025-06-12 18:25] LABS: CREATINE KINASE, TOTAL 97.0 U/L (21-232)
--- NOTE | 2025-06-12 18:40 | HMCIMG ---
EXAM: CHEST RADIOGRAPH (1 VIEW) Technique: A single frontal view of the chest was obtained. Clinical Information: Chest pain. Findings: Lungs and large airways: Clear lungs without focal airspace consolidation. Pleura: No pleural effusion. No pneumothorax detected. Cardiomediastinum: Cardiac silhouette within expected size limits for a single frontal projection. Mediastinal contours are unremarkable. Mediastinum and elisha: No mediastinal widening; elisha are not enlarged by radiographic criteria. Diaphragm: Mild elevation of the right hemidiaphragm. Left hemidiaphragm is normal in contour. Bones and joints: No acute osseous abnormality identified. Upper abdomen: Visualized portions are unremarkable. Devices and lines: None.IMPRESSION: 1. No acute cardiopulmonary findings. /[place]
[2025-06-12 19:05] LABS: AMPHET/METH SCREEN,URINE NEGATIVE (NEGATIVE); BARBITURATE SCREEN, URINE NEGATIVE (NEGATIVE); CANNABINOID SCREEN,URINE NEGATIVE (NEGATIVE); COCAINE SCREEN,URINE NEGATIVE (NEGATIVE)
[2025-06-12 19:25] LABS: RAPID GROUP A STREP negative (NEGATIVE)
[2025-06-12 19:28] LABS: SARS-CoV-2, RNA, NAAT NEGATIVE SARS CoV-2 (NEGATIVE)
[2025-06-12 19:34] LABS: INFLUENZA TYPE A Negative For Type A (NEGATIVE); INFLUENZA TYPE B Negative For Type B (NEGATIVE)
[2025-06-12] MEDS: 0.9%NACL 1000ML 1,000 ML IV ONE (20:24)
[2025-06-12] MEDS ORDERED: KETO10TA2 PO (21:34)
--- NOTE | 2025-06-12 21:35 | ERN ---
General Chief Complaint: Chest Pain Stated Complaint: CP Time Seen by MD: 17:48 Time Seen by Midlevel: 17:48 Source: patient History of Present Illness Initial Comments 42-year-old male presents to the ER for evaluation of upper respiratory symptoms. Symptoms consist of cough, congestion, generalized body weakness, and chills Allergies: Coded Allergies: azithromycin (Unverified Allergy, Unknown, 01/16/19) cyclobenzaprine (Unverified Allergy, Unknown, 01/16/19) pseudoephedrine (Unverified Allergy, Unknown, 01/16/19) Home Meds Active Scripts Meloxicam (Meloxicam) 15 Mg Tablet, 1 TAB PO DAILY for 5 Days, #5 TAB 0 Refills Prov:BRITTON COLON [facility] 11/21/24 Pantoprazole Sodium (Pantoprazole Sodium) 20 Mg Tablet.dr, 1 TAB PO DAILY for 30 Days, #30 TAB 0 Refills Prov:RUBY TOSCANO [facility] 10/24/24 Mag Hydrox/Al Hydrox/Simeth (Maalox Maximum Strength Susp) 400 Mg-400 Mg-40 Mg/5 Ml Oral.susp, 20 ML PO Q6H for 5 Days, #355 ML 0 Refills Prov:RUBY TOSCANO [facility] 10/24/24 Ibuprofen (Ibuprofen 800 mg Tab) 800 Mg Tab, 800 MG PO Q8H PRN for fever or pain, #30 TAB 0 Refills Prov:MARCO ANTONIO NOVA [facility] 01/28/24 Ketorolac Tromethamine (Ketorolac Tromethamine) 10 Mg Tablet, 10 MG PO TID for 5 Days, #15 TAB Prov:JOSÉ MIGUEL TRIVEDI [facility] 01/27/24 Metoclopramide HCl (Reglan) 10 Mg Tablet, 10 MG PO QID, #120 TAB 2 Refills Prov:DEJON NEAL Sr., MD 06/21/23 Pantoprazole Sodium (Protonix) 40 Mg Tablet., 40 MG PO BID, #60 TAB 2 Refills Prov:DEJON NEAL Sr., MD 06/21/23 Acetaminophen with Codeine (Acetaminophen-Cod #3 Tablet) 1 Each Tablet, 1 EACH PO QID, #15 TAB Prov:SANTA OSBORN MD 01/23/22 Ibuprofen (Ibuprofen) 600 Mg Tablet, 600 MG PO Q6H PRN for PAIN, #30 TAB Prov:SANTA OSBORN MD 01/23/22 Glipizide (Glipizide ER) 5 Mg Tab.er.24, 5 MG PO DAILYBKFST for 30 Days, #30 TAB 0 Refills Prov:JOHN BELTRAN MD 10/05/21 [place]-3/Dha/Epa/Fish Oil (Fish Oil 1,000 mg Softgel) 1 Each Capsule, 1 EACH PO TID for 30 Days, #90 CAP 0 Refills Prov:JOHN BELTRAN MD 10/05/21 Reported Medications Metoprolol Tartrate (Metoprolol Tartrate) 25 Mg Tablet, 25 MG PO BID, TAB 10/04/21 Paroxetine HCl (Paroxetine HCl) 20 Mg Tablet, 20 MG PO BID, TAB 02/04/21 Lisinopril (Lisinopril) 20 Mg Tablet, 20 MG PO BID, TAB 02/04/21 Aspirin (ASPIRIN 81 MG ECTAB) 81 Mg Ectab, 81 MG PO DAILY, TAB.EC 02/04/21 Past Medical History Past Medical History: Diabetes-Type II, High Cholesterol, Hypertension Past Surgical History: Other Surgical History Other: INGUINAL HERNIA REPAIR, RIGHT HAND REPAIR Social History Social History: Negative, Lives with family ROS Dictation CONSTITUTIONAL: Negative except for HPI HEAD/FACE: Negative except for HPI EENT: Negative except for HPI RESPIRATORY: Negative except for HPI GASTROINTESTINAL/ABDOMINAL: Negative except for HPI GENITOURINARY: Negative except for HPI MUSCULOSKELETAL: Negative except for HPI INTEGUMENTARY: Negative except for HPI NEUROLOGICAL/PSYCH: Negative except for HPI HEMATOLOGIC/LYMPHATIC: Negative except for HPI All Systems Negative, Except as noted above. 13 point review of systems assessed and all negative except for above. Physical Exam Physical Exam Dictation Vital Signs reviewed General Appearance: Alert, oriented x 3, no acute distress, well developed, nourished. Head and Face: non-traumatic. Eyes: PERRL, pink conjunctivas, eyelid no trauma, anterior chamber with arcus senilis. Ears: Pinnas intact and no signs of trauma or erythema ear canals clear and no discharge TM no erythema Nose: No discharge, no bleeding. Oropharynx: Mouth normal, tongue pink, pharynx clear,no erythema, tonsils no exudates, no abscesses noted, mucous membrane moist Neck: Supple, non-tender, no thyromegaly, no masses, no JVD, no bruits Breast:Deferred Chest:No tenderness, no crepitus, no paradoxical movement, no retractions Lungs:Clear, well-ventilated, symmetric, no rales, no wheezing, no rhonchi, no stridor, good breath sounds bilaterally Heart: Regular rate, regular rhythm, no murmur, no gallops Vascular: no peripheral edema, Abdomen: Soft, positive bowel sounds, nondistended, no guarding, nontender, no rebound, no masses no hepatomegaly, no splenomegaly, no Ortiz's sign, no hernias. Rectal: Deferred Genital: Deferred Neurological: Normal speech, motor function intact, sensory function intact Musculoskeletal: Neck nontender, full range of motion, back nontender, full range of motion, Extremities: nontender, full range of motion Skin: Color pink, dry, no turgor, no rash, no lacerations, no abrasions, no contusions. Lymphatic: Deferred Results Laboratory and Microbiology Lab and Micro Result Laboratory Tests Test 06/12/25 18:00 06/12/25 18:40 06/12/25 18:47 White Blood Count 7.6 K/uL (4.8-10.8) Red Blood Count 5.16 MIL/uL (4.50-6.20) Hemoglobin 15.6 g/dL (14.0-18.0) Hematocrit 45.5 % (42-54) Mean Corpuscular Volume 88.2 fL (79-99) Mean Corpuscular Hemoglobin 30.2 pg (27.0-33.0) Mean Corpuscular Hemoglobin Concent 34.3 g/dL (32.0-36.0) Red Cell Distribution Width 12.6 % (11.0-15.5) Platelet Count 192 K/uL (130-400) Mean Platelet Volume 10.4 fL (7.5-10.5) Immature Granulocyte % (Auto) 0.3 % (0-1) Neutrophils (%) (Auto) 64.7 % (40.0-77.0) Lymphocytes (%) (Auto) 21.9 % (21.0-51.0) Monocytes (%) (Auto) 8.7 % (3.0-13.0) Eosinophils (%) (Auto) 3.7 % (0.0-8.0) Basophils (%) (Auto) 0.7 % (0.0-5.0) Neutrophils # (Auto) 4.9 K/uL (1.8-7.7) Lymphocytes # (Auto) 1.7 K/uL (1.0-4.8) Monocytes # (Auto) 0.7 K/uL (0.1-1.0) Eosinophils # (Auto) 0.28 K/uL (0.00-0.70) Basophils # (Auto) 0.05 K/uL (0.00-0.20) Absolute Immature Granulocyte (auto 0.02 K/uL (0-1) Nucleated Red Blood Cells 0.0 % (0.0-0.19) Sodium Level 134 mmol/L (136-145) L Potassium Level 4.1 mmol/L (3.5-5.1) Chloride Level 97 mmol/L (101-111) L Carbon Dioxide Level 25 mmol/L (21-32) Blood Urea Nitrogen 15 mg/dL (7-18) Creatinine 0.9 mg/dL (0.5-1.3) Glomerular Filtration Rate Calc 105 mL/min (>90) Random Glucose 290 mg/dL (70-105) H Total Calcium 9.0 mg/dL (8.5-10.1) Magnesium Level 1.90 mg/dL (1.80-2.40) Total Creatine Kinase 97 U/L (21-232) # Troponin I High Sensitivity 5 ng/L (4-75) B-Type Natriuretic Peptide < 5 pg/mL (0-100) Urine Opiates Screen NEGATIVE (NEGATIVE) Urine Barbiturates Screen NEGATIVE (NEGATIVE) Urine Phencyclidine Screen NEGATIVE (NEGATIVE) Urine Amphetamines Screen NEGATIVE (NEGATIVE) Urine Benzodiazepines Screen NEGATIVE (NEGATIVE) Urine Cocaine Screen NEGATIVE (NEGATIVE) Urine Marijuana (THC) Screen NEGATIVE (NEGATIVE) Influenza Type A Antigen Negative For Type A Influenza Type B Antigen Negative For Type B SARS-CoV-2, RNA, NAAT NEGATIVE SARS CoV-2 Group A Streptococcus Rapid negative (NEGATIVE) Labs Reviewed?: Yes MDM MDM: Differential diagnosis: Viral syndrome, upper respiratory infection, dehydration, electrolyte abnormality, acute coronary syndrome There are no social concerns with this patient. Prescription drug management Prescriptions will include: Toradol Medical management and examination interpretation discussions were had by me with other qualified healthcare professionals as indicated for the patient's care. ED Course Orders Procedure Category Date Status Time Cbc With Differential LAB 06/12/25 Complete 17:50 Basic Metabolic Panel LAB 06/12/25 Complete 17:50 B-Type Natriuretic LAB 06/12/25 Complete Peptide 17:50 Drug Screen Urine LAB 06/12/25 Complete 17:50 Creatine Kinase, Total LAB 06/12/25 Complete 17:50 Magnesium LAB 06/12/25 Complete 17:50 Troponin I High LAB 06/12/25 Complete Sensitivity 17:50 Chest 1vw RAD 06/12/25 Resulted 17:50 12 Lead Ekg Tracing- EKG 06/12/25 Complete Technical 17:50 Covid Rna Naat LAB 06/12/25 Complete 19:10 Influenza Type A & B, LAB 06/12/25 Complete Rapid 19:10 Rapid (Group A Strep) LAB 06/12/25 Complete 19:10 Ketorolac PHA 06/12/25 Complete Tromethamine 15mg/Ml 20:30 0.9%Nacl 1000ml (Ns PHA 06/12/25 Complete 1000ml) 20:30 Troponin I High LAB 06/12/25 In Process Sensitivity 20:02 Current Medications Medications (Trade) Dose Ordered Sig/Daina Route PRN Reason Start Time Stop Time Status Last Admin Dose Admin Ketorolac Tromethamine (toRADol) 15 mg ONCE ONCE IV 06/12/25 20:30 06/12/25 20:31 DC 06/12/25 20:24 Sodium Chloride 1,000 ml @ 0 mls/hr ONCE ONCE IV 06/12/25 20:30 06/12/25 20:31 DC 06/12/25 20:24 Vital Signs Date Time Temp Pulse Resp B/P (MAP) Pulse Ox O2 Delivery O2 Flow Rate FiO2 06/12/25 19:48 99.7 92 20 130/68 98 Room Air* 0 21 06/12/25 18:43 100.4 98 22 135/88 97 Room Air* 0 21 06/12/25 17:47 98.1 111 18 155/96 98 DX & DISP Disposition: Discharge Departure Impression: Primary Impression: Viral syndrome Condition: Stable Scripts Ketorolac Tromethamine (Ketorolac Tromethamine) 10 Mg Tablet 1 TAB PO BID for pain for 5 Days, #10 TAB 0 Refills Prov: JOSÉ MIGUEL TRIVEDI PAC 06/12/25 Referrals: DEYANIRA TRIVEDI MD (PCP) I have reviewed the case, and I agree with, Diagnosis and Plan I performed the substantive portion of the visit. I have reviewed and personally made and approve the management plan that is documented in the note by myself or the MARIE. I acknowledge for responsibility for the patient's management plan. JOSÉ MIGUEL TRIVEDI [facility] Jun 12, 2025 21:35
[2025-06-12 21:47] VITALS: BP 129/71; PULSE 84; RESP 18; TEMP 98.2; O2SAT 98
== END 2025-06-12 21:48 | disposition home or self-care (01) ==
LOC: EDH 17:46
DX: B34.9 Viral infection, unspecified (principal); E11.9 Type 2 diabetes mellitus without complications; E78.00 Pure hypercholesterolemia, unspecified; I10 Essential (primary) hypertension; Z88.1 Allergy status to other antibiotic agents; Z88.8 Allergy status to other drugs, medicaments and biological substances; Z79.1 Long term (current) use of non-steroidal anti-inflammatories (NSAID); Z79.82 Long term (current) use of aspirin; Z79.899 Other long term (current) drug therapy; Z98.890 Other specified postprocedural states; Z20.822 Contact with and (suspected) exposure to COVID-19
CPT/HCPCS: 99284; 96374; 71045; 87635; 96361; 96375; 82550; 83735; 84484 ×2; 80048; 83880; 80305; 85025; 87880; 87804 ×2; 36415; 93005; J1100; J1885 ×2; J7030 ×2

== ENCOUNTER 2025-07-22 09:53 | Emergency (ER) | payer BC ==
[~2025-07-22] VITALS: Ht 175.3 cm; Wt 104.3 kg
[2025-07-22 10:03] VITALS: PULSE 78
--- NOTE | 2025-07-22 11:30 | NUR ---
OD 20/40, OS 20/30, OU 20/20
[2025-07-22] MEDS: TETRACAINE HCL 0.5% 4 ML OPHTH SOLN OP ONE (12:00)
[2025-07-22] MEDS: FLUORESCEIN SODIUM 1 STRIP STRIP ONE (12:01)
--- NOTE | 2025-07-22 12:01 | NUR ---
EYE EXAM WITH TETRACAINE AND FLUROCINE STRIP BY DR RODRIGUEZ, PT [facility].
--- NOTE | 2025-07-22 12:03 | ERN ---
General Chief Complaint: Eye Problems Stated Complaint: EYE PAIN Time Seen by MD: 10:10 Source: patient History of Present Illness Initial Comments Patient is a 50-year-old male bilateral feet. 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 He is able to see but has a discomfort with light. Allergies: Coded Allergies: azithromycin (Unverified Allergy, Unknown, 01/16/19) cyclobenzaprine (Unverified Allergy, Unknown, 01/16/19) pseudoephedrine (Unverified Allergy, Unknown, 01/16/19) Home Meds Active Scripts Ketorolac Tromethamine (Ketorolac Tromethamine) 10 Mg Tablet, 1 TAB PO BID for pain for 5 Days, #10 TAB 0 Refills Prov:JOSÉ MIGUEL TRIVEDI [facility] 06/12/25 Meloxicam (Meloxicam) 15 Mg Tablet, 1 TAB PO DAILY for 5 Days, #5 TAB 0 Refills Prov:BRITTON COLON [facility] 11/21/24 Pantoprazole Sodium (Pantoprazole Sodium) 20 Mg Tablet.dr, 1 TAB PO DAILY for 30 Days, #30 TAB 0 Refills Prov:RUBY TOSCANO [facility] 10/24/24 Mag Hydrox/Al Hydrox/Simeth (Maalox Maximum Strength Susp) 400 Mg-400 Mg-40 Mg/5 Ml Oral.susp, 20 ML PO Q6H for 5 Days, #355 ML 0 Refills Prov:RUBY TOSCANO [facility] 10/24/24 Ibuprofen (Ibuprofen 800 mg Tab) 800 Mg Tab, 800 MG PO Q8H PRN for fever or pain, #30 TAB 0 Refills Prov:MARCO ANTONIO [facility] 01/28/24 Ketorolac Tromethamine (Ketorolac Tromethamine) 10 Mg Tablet, 10 MG PO TID for 5 Days, #15 TAB Prov:JOSÉ MIGUEL TRIVEDI [facility] 01/27/24 Metoclopramide HCl (Reglan) 10 Mg Tablet, 10 MG PO QID, #120 TAB 2 Refills Prov:DEJON NEAL Sr., MD 06/21/23 Pantoprazole Sodium (Protonix) 40 Mg Tablet.dr, 40 MG PO BID, #60 TAB 2 Refills Prov:DEJON NEAL Sr., MD 06/21/23 Acetaminophen with Codeine (Acetaminophen-Cod #3 Tablet) 1 Each Tablet, 1 EACH PO QID, #15 TAB Prov:SANTA OSBORN MD 01/23/22 Ibuprofen (Ibuprofen) 600 Mg Tablet, 600 MG PO Q6H PRN for PAIN, #30 TAB Prov:SANTA OSBORN MD 01/23/22 Glipizide (Glipizide ER) 5 Mg Tab.er.24, 5 MG PO DAILYBKFST for 30 Days, #30 TAB 0 Refills Prov:JOHN BELTRAN MD 10/05/21 [place]-3/Dha/Epa/Fish Oil (Fish Oil 1,000 mg Softgel) 1 Each Capsule, 1 EACH PO TID for 30 Days, #90 CAP 0 Refills Prov:JOHN BELTRAN MD 10/05/21 Reported Medications Metoprolol Tartrate (Metoprolol Tartrate) 25 Mg Tablet, 25 MG PO BID, TAB 10/04/21 Paroxetine HCl (Paroxetine HCl) 20 Mg Tablet, 20 MG PO BID, TAB 02/04/21 Lisinopril (Lisinopril) 20 Mg Tablet, 20 MG PO BID, TAB 02/04/21 Aspirin (ASPIRIN 81 MG ECTAB) 81 Mg Ectab, 81 MG PO DAILY, TAB.EC 02/04/21 Past Medical History Past Medical History: Diabetes-Type II, High Cholesterol, Hypertension Past Surgical History: Other Surgical History Other: INGUINAL HERNIA REPAIR, RIGHT HAND REPAIR Social History Social History: Negative, Lives with family ROS Dictation CONSTITUTIONAL: No chills, no fever, no weakness, no diaphoresis, no malaise. HEAD/FACE: No signs of trauma. EENT: eye pain, no blurred vision, tearing, no double vision, no ear pain, no ear discharge, no nose pain, no nasal congestion, no throat pain, no throat swelling, no mouth pain. RESPIRATORY: No cough, no orthopnea, no SOB, no stridor, no wheezing. CARDIOVASCULAR: No chest pain, no edema, no palpitations, no syncope. GASTROINTESTINAL/ABDOMINAL: No abdominal pain, no constipation, no diarrhea, n o nausea, no vomiting. GENITOURINARY: No abnormal discharge, no dysuria, no frequent urination, no hematuria. No complaints of pain in the genitals. MUSCULOSKELETAL: No back pain, no gout, no joint pain, no joint swelling, no muscle pain, no muscle stiffness, no neck pain. INTEGUMENTARY: No change in color, no change in hair/nails, no dryness, no lesion, no lumps, no rash. NEUROLOGICAL/PSYCH: No anxiety, not depressed, no emotional problem, no headache, no numbness, no pre-existing deficit, no history of seizures, no tremors, no weakness. HEMATOLOGIC/LYMPHATIC: Not anemic, no history of blood clots, no apparent bleeding, no bruising, glands not swollen. All Systems Negative, Except as Noted. Physical Exam Physical Exam Dictation VITAL SIGNS: Reviewed. GENERAL APPEARANCE: Alert, oriented x3, no acute distress, obese. HEAD AND FACE: Non-traumatic. EYES: PERRL, pink conjunctivas, eyelid no trauma, anterior chamber clear. Fluorescein eye test- negative, visual acuity test within normal limits EARS: Pinnas intact and no signs of trauma or erythema. Ear canals clear and no discharge. TMs no erythema. NOSE: No discharge, no bleeding. OROPHARYNX: Mouth normal, teeth no caries, tongue pink. Pharynx clear, no garry thema. Tonsils no exudates, no abscesses noted. Mucous membrane moist. NECK: Supple, non-tender, no thyromegaly, no masses, no JVD, no bruits. BREAST: Deferred. CHEST: No tenderness, no crepitus, no paradoxical movement, no retractions. LUNGS: Clear, well-ventilated, symmetric, no rales, no wheezing, no rhonchi, no stridor, good breath sounds bilaterally. HEART: Regular rate, regular rhythm, no murmur, no gallops. VASCULAR: No peripheral edema. ABDOMEN: Soft, positive bowel sounds, nondistended, no guarding, nontender, no rebound, no masses no hepatomegaly, no splenomegaly, no Ortiz's sign, no hernias. RECTAL: Deferred. GENITAL: Deferred. NEUROLOGICAL: Normal speech, gross motor function intact, gross sensory function intact. MUSCULOSKELETAL: Neck nontender, full range of motion, back nontender, full range of motion. EXTREMITIES: Nontender, full range of motion. SKIN: Color pink, dry, no turgor, no rash, no lacerations, no abrasions, no contusions. LYMPHATICS: Deferred. Results Laboratory and Microbiology Labs Reviewed?: Yes MDM MDM: Differential diagnosis: photokeratoconjunctivitis, arc eye Rationale: Tests considered and ordered secondary to shared decision making include: Previous outside records reviewed: Old ER visits. Risk of complication and/or morbidity or mortality of patient management: None Medications-Per medication reconciliation Need for hospitalization: Patient does not meet criteria for hospitalization. Need for emergency major/minor surgery: No Patient is complaining of bilateral eye pain. 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 Patient is able to see with some discomfort tetracaine helped with the discomfort. Patient will be discharged in stable condition with a diagnosis of photokeratoconjunctivitis, ED Course Orders Procedure Category Date Status Time Tetracaine Hcl PHA 07/22/25 In Process (Pontocaine 0.5% 12:00 Fluorescein Sodium PHA 07/22/25 Complete ([facility] At) 11:52 Current Medications Medications (Trade) Dose Ordered Sig/Daina Route PRN Reason Start Time Stop Time Status Last Admin Dose Admin Fluorescein Sodium ([facility] At) 1 strip STK-MED ONCE .ROUTE 07/22/25 11:52 07/22/25 11:52 DC Tetracaine HCl (Pontocaine 0.5% Ophth Soln) 2 drop ONCE ONCE OP 07/22/25 12:00 07/22/25 12:01 Vital Signs Date Time Temp Pulse Resp B/P (MAP) Pulse Ox O2 Delivery O2 Flow Rate FiO2 07/22/25 10:03 98.4 78 16 123/78 100 Room Air* 0 21 07/22/25 09:54 97.9 77 16 124/86 99 Room Air 0 DX & DISP Disposition: Discharge Departure Impression: Primary Impression: Photokeratoconjunctivitis of both eyes Condition: Stable Scripts Naproxen (Naproxen) 500 Mg Tablet 1 TAB PO BID for pain for 7 Days, #14 TAB 0 Refills Prov: SHEILA RODRIGUEZ MD 07/22/25 Carboxymethylcellulos/Glycerin (Refresh Optive Eye Drops) 0.5 %-0.9 % Drops 1 DROP OP QID for dry eyes for 30 Days, #30 ML 0 Refills Prov: SHEILA RODRIGUEZ MD 07/22/25 Additional Instructions: FOLLOW-UP WITH PRIMARY CARE PROVIDER IN 1 TO 2 DAYS. TAKE MEDICATIONS DIRECTED HERE IN THE EMERGENCY ROOM. OKAY TO CONTINUE HOME MEDICATIONS UNLESS OTHERWISE DISCUSSED DURING YOUR VISIT IN THE EMERGENCY ROOM TODAY. RETURN TO YOUR NEAREST EMERGENCY ROOM IF SYMPTOMS WORSEN OR IF THERE IS NO IMPROVEMENT. CALL 911 IF YOU NEED IMMEDIATE ASSISTANCE. TAKE TYLENOL [id number] NEEDED AND IF NO CONTRAINDICATIONS ARE PRESENT. INCREASE ORAL HYDRATION. A WOUND CULTURE OR URINE CULTURE WAS ORDERED HERE IN THE EMERGENCY ROOM DEPARTMENT PLEASE FOLLOW-UP WITH PRIMARY CARE PROVIDER AND ADVISE THEM TO GET REPORTS FROM OUR FACILITY. IF YOU HAD ANY CHRISTIAN WRAP/SPLINTS THAT WERE APPLIED HERE, PLEASE DO NOT REMOVE THEM UNTIL YOU SEE YOUR PRIMARY CARE OR SPECIALTY. Referrals: Referrals: DEYANIRA TRIVEDI MD (PCP) Time of Disposition: 12:01 SHEILA RODRIGUEZ MD Jul 22, 2025 12:03
[2025-07-22 12:09] VITALS: BP 118/80; RESP 16; TEMP 98; O2SAT 99
== END 2025-07-22 12:12 | disposition home or self-care (01) ==
LOC: EDH 09:53
DX: H10.89 Other conjunctivitis (principal); E11.9 Type 2 diabetes mellitus without complications; E78.00 Pure hypercholesterolemia, unspecified; I10 Essential (primary) hypertension; Z79.1 Long term (current) use of non-steroidal anti-inflammatories (NSAID); Z79.82 Long term (current) use of aspirin; Z79.899 Other long term (current) drug therapy; Z88.1 Allergy status to other antibiotic agents
CPT/HCPCS: 99283